=== PATIENT | female | born 1930 | race Caucasian/White ===

== ENCOUNTER 2016-08-07 15:14 | Emergency (ER) | payer MEDICARE ==
[2016-08-07 15:29] VITALS: BP 179/70; PULSE 76; O2SAT 97
--- NOTE | 2016-08-07 16:39 | ERPHSYRPT ---
- History of Present Illness Time Seen by Provider: 08/07/16 16:26 Source: patient Exam Limitations: no limitations Patient Subjective Stated Complaint: PT REPORTS CHRONIC LOW BACK PAIN-STATES THAT HER BACK HAS BEEN HURTING THE LAST FEW DAYS-DENIES INJURY Triage Nursing Assessment: PT [place] T DRY-NO ABRASIONS OR BRUISING NOTED- PT AMBULATORY TO ED WITH NO DIFFICLTUY Physician History: The patient is an 85-year-old female with her complaining of increasing low back pain over the past couple days. She hurt her back 3 years ago and has periodic problems with it. She takes tizanidine and Flexeril. She used to take physical therapy but hasn't had any recently. Her past medical history is significant for chronic back pain, anxiety, hypertension, and hypothyroidism. Timing/Duration: yesterday Method of Injury: bending, lifting Quality: aching Back Pain Location: lumbar spine Severity of Pain-Max: moderate Severity of Pain-Current: moderate Modifying Factors: Improves With: pain medication Associated Symptoms: denies symptoms Previous symptoms: same symptoms as today Allergies/Adverse Reactions: codeine [Codeine] Allergy (Mild, Verified 08/07/16 15:31) Penicillins Allergy (Mild, Verified 08/07/16 15:31) Sulfa (Sulfonamide Antibiotics) [Sulfa(Sulfonamide Antibiotics)] Allergy ( Verified 08/07/16 15:31) Home Medications: Amlodipine Bes/Olmesartan Med [[place] 5-20 mg Tablet] 1 each PO DAILY 02/03/13 [ History] Levothyroxine Sodium 50 Mcg [Synthroid 50 Mcg] 50 mcg PO DAILY 02/03/13 [ History] Lorazepam 1 mg [Ativan 1 MG] 2 mg PO HS 02/03/13 [History] Multivitamins,Therapeutic Tab* [Theragran Multivitamin] 1 tab PO DAILY [History] Cyclobenzaprine HCl [Flexeril] 5 mg PO DAILY 10/01/15 [History] Gabapentin [Neurontin] 100 mg PO HS 10/01/15 [History] Lisinopril 10 mg [Zestril 10 MG] 10 mg PO DAILY 10/01/15 [History] Hx Tetanus, Diphtheria Vaccination/Date Given: Yes Hx Influenza Vaccination/Date Given: Yes Hx Pneumococcal Vaccination/Date Given: No Immunizations Up to Date: Yes - Review of Systems Constitutional: No Fever, No Chills Eyes: No Symptoms Ears, Nose, & Throat: No Symptoms Respiratory: No Cough, No Dyspnea Cardiac: No Chest Pain, No Edema, No Syncope Abdominal/Gastrointestinal: No Abdominal Pain, No Nausea, No Vomiting, No Diarrhea Genitourinary Symptoms: No Dysuria Musculoskeletal: Back Pain Skin: No Rash Neurological: No Dizziness, No Focal Weakness, No Sensory Changes Psychological: No Symptoms Endocrine: No Symptoms Hematologic/Lymphatic: No Symptoms Immunological/Allergic: No Symptoms All Other Systems: Reviewed and Negative - Past Medical History Pertinent Past Medical History: Yes Neurological History: No Pertinent History ENT History: Cataracts, Glaucoma, Macular Degeneration Cardiac History: Hypertension Respiratory History: No Pertinent History Endocrine Medical History: Diabetes Type II Musculoskeletal History: Arthritis, Other GI Medical History: Diverticulitis History: Other Psycho-Social History: Depression Female Reproductive Disorders: No Pertinent History Other Medical History: hx of dilitation last at dr epperson office - Past Surgical History Past Surgical History: Yes Neuro Surgical History: No Pertinent History Cardiac: No Pertinent History Respiratory: No Pertinent History Gastrointestinal: Cholecystectomy Genitourinary: No Pertinent History, Other Musculoskeletal: Joint Replacement, Orthopedic Surgery Female Surgical History: Hysterectomy, Other Other Surgical History: both knees replaced,rotator cuff, rectal narinder bladder lift,cataract removed - Social History Smoking Status: Never smoker Exposure to second hand smoke: No Drug Use: none Patient Lives Alone: No - Female History Hx Now: No - Nursing Vital Signs Nursing Vital Signs: Initial Vital Signs Temperature 98.4 F Temperature Source Oral Pulse Rate 76 Respiratory Rate 18 Blood Pressure [Left Arm] 179/70 Pain Intensity 2 - Physical Exam General Appearance: no apparent distress, alert Eye Exam: PERRL/EOMI, eyes nml inspection Ears, Nose, Throat Exam: normal ENT inspection Neck Exam: normal inspection, non-tender, supple, full range of motion, No meningismus, No midline tenderness Respiratory Exam: normal breath sounds, lungs clear, No respiratory distress Cardiovascular Exam: regular rate/rhythm, normal heart sounds Gastrointestinal Exam: soft, No tenderness, No mass Rectal Exam: not done Back Exam: muscle spasm Extremity Exam: normal inspection, normal range of motion, No calf tenderness, No pedal edema Neurologic Exam: alert, oriented x 3, cooperative, head of advertising II-XII nml as tested, normal mood/affect, nml station & gait, sensation nml, No motor deficits Skin Exam: normal color, warm, dry, No rash SpO2 Interpretation: normal SpO2: 97 Oxygen Delivery: Room Air - Departure Time of Disposition: 16:41 Departure Disposition: Home Clinical Impression: Back pain Condition: Stable Critical Care Time: No Prescriptions: Hydrocodone Bit/Acetaminophen [[place] 5-325 Tablet] 1 each PO Q6H PRN PRN #10 tablet PRN Reason: Pain
== END 2016-08-07 16:49 | disposition home or self-care (01) ==
LOC: ED 15:14
DX: M54.5 Low back pain (principal)
CPT/HCPCS: 99281

== ENCOUNTER 2016-08-28 18:13 | Emergency (ER) | payer MEDICARE ==
--- NOTE | 2016-08-28 18:41 | ERPHSYRPT ---
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 c collar on. c/o rt lateral thigh--small bruise noted. small laceration to post head noted-- bleeding controlled. 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 c collar on. c/o rt lateral thigh--small bruise noted. small laceration to post head noted--bleeding controlled. skin tear noted to rt forearm. No loss of consciousness, patient is alert awake in ER , c/o low back pain, states that it aggravated by fall, able to walk without any difficulty Occurred: just prior to arrival Reason for Fall: tripped Injuries/Pain Location: head Loss of Consciousness: no loss of consciousness Severity of Pain-Max: mild Severity of Pain-Current: mild Modifying Factors: Improves With: nothing Associated Symptoms (Fall): denies symptoms Allergies/Adverse Reactions: codeine [Codeine] Allergy (Mild, Verified 08/07/16 15:31) Penicillins Allergy (Mild, Verified 08/07/16 15:31) Sulfa (Sulfonamide Antibiotics) [Sulfa(Sulfonamide Antibiotics)] Allergy ( Verified 08/07/16 15:31) Home Medications: Amlodipine Bes/Olmesartan Med [Annamarie 5-20 mg Tablet] 1 each PO DAILY 02/03/13 [ History] Levothyroxine Sodium 50 Mcg [Synthroid 50 Mcg] 50 mcg PO DAILY 02/03/13 [ History] Lorazepam 1 mg [Ativan 1 MG] 2 mg PO HS 02/03/13 [History] Multivitamins,Therapeutic Tab* [Theragran Multivitamin] 1 tab PO DAILY [History] Cyclobenzaprine HCl [Flexeril] 5 mg PO DAILY 10/01/15 [History] Gabapentin [Neurontin] 100 mg PO HS 10/01/15 [History] Lisinopril 10 mg [Zestril 10 MG] 10 mg PO DAILY 10/01/15 [History] Hx Tetanus, Diphtheria Vaccination/Date Given: Yes Hx Influenza Vaccination/Date Given: No Hx Pneumococcal Vaccination/Date Given: No Immunizations Up to Date: Yes - Review of Systems Constitutional: No Fever, No Chills Eyes: No Symptoms Ears, Nose, & Throat: No Symptoms Respiratory: No Cough, No Dyspnea Cardiac: No Chest Pain, No Edema, No Syncope Abdominal/Gastrointestinal: No Abdominal Pain, No Nausea, No Vomiting, No Diarrhea Genitourinary Symptoms: No Dysuria Musculoskeletal: Fall, No Back Pain, No Neck Pain Skin: Other (hematoma on occipital scalp), No Rash Neurological: No Dizziness, No Focal Weakness, No Sensory Changes Psychological: No Symptoms Endocrine: No Symptoms All Other Systems: Reviewed and Negative - Past Medical History Pertinent Past Medical History: Yes Neurological History: No Pertinent History ENT History: Cataracts, Glaucoma, Macular Degeneration Cardiac History: Hypertension Respiratory History: No Pertinent History Endocrine Medical History: Diabetes Type II Musculoskeletal History: Arthritis, Other GI Medical History: Diverticulitis History: Other Psycho-Social History: Depression Female Reproductive Disorders: No Pertinent History Other Medical History: hx of dilitation last at dr epperson office - Past Surgical History Past Surgical History: Yes Neuro Surgical History: No Pertinent History Cardiac: No Pertinent History Respiratory: No Pertinent History Gastrointestinal: Cholecystectomy Genitourinary: No Pertinent History, Other Musculoskeletal: Joint Replacement, Orthopedic Surgery Female Surgical History: Hysterectomy, Other Other Surgical History: both knees replaced,rotator cuff, rectal narinder bladder lift,cataract removed - Social History Smoking Status: Never smoker Exposure to second hand smoke: No Drug Use: none Patient Lives Alone: No - Female History Hx Now: No - Nursing Vital Signs Nursing Vital Signs: Initial Vital Signs Temperature 98.4 F Temperature Source Oral Pulse Rate 100 Respiratory Rate 18 Blood Pressure [] 179/66 - [place] Coma Score Best Eye Response ([place]): (4) open spontaneously Best Verbal Response ([place]): (5) oriented Best Motor Response ([place]): (6) obeys commands [place] Total: 15 - Physical Exam General Appearance: no apparent distress, alert Head Injury: no evidence of injury Eye Exam: PERRL/EOMI ENT Exam: airway nml Neck Exam: normal inspection, No tenderness Respiratory/Chest Exam: normal breath sounds, No chest tenderness, No respiratory distress Cardiovascular Exam: normal heart sounds, regular rate/rhythm Gastrointestinal Exam: soft, No tenderness, No distention, No guarding, No ecchymosis Back Exam: normal inspection, decreased range of motion, muscle spasm, No CVA tenderness, No vertebral tenderness, No point tenderness Extremity Exam: normal inspection, normal range of motion, pelvis stable, No deformities Neurologic Exam: alert, oriented x 3, cooperative, sensation nml, other ( occipital scalp hematoma, puncture wound, no laceration), No motor deficits Skin Exam: normal color, warm, dry SpO2: 94 Oxygen Delivery: Room Air - Course Nursing assessment & vital signs reviewed: Yes - CT Exams Head CT Interpretation: Tele-radiologist Report Cervical Spine CT Interpretation: Tele-radiologist Report Ordered Tests: Active Orders 24 hr Category Date Time Status CERVICAL SPINE WO CONTRAST [CT] Stat Exams 08/28/16 18:16 Taken HEAD WITHOUT CONTRAST [CT] Stat Exams 08/28/16 18:16 Taken - Progress Progress: improved, pain not gone completely Progress Note: 08/28/16 19:02 scalp wound cleaned, no sutures needed. dressing applied. patient walked in ER without any difficulty. Counseled pt/family regarding: diagnosis, need for follow-up, rad results - Departure Time of Disposition: 19:03 Departure Disposition: Home Clinical Impression: Head injury, acute, without loss of consciousness Qualifiers: Encounter type: initial encounter Qualified Code(s): S09.90XA - Unspecified injury of head, initial encounter Fall Qualifiers: Encounter type: initial encounter Qualified Code(s): W19.XXXA - Unspecified fall, initial encounter Condition: Stable Critical Care Time: No Referrals: MADDIE SHARP MD [Primary Care Provider] - Followup in 3 days w/ PCP Instructions: Prevent Falls, Contusion
[2016-08-28 19:39] VITALS: BP 122/70; PULSE 84; O2SAT 100
--- NOTE | 2016-08-28 20:44 | XRAY ---
Indication: Posterior head injury/bleeding following fall. Multiple contiguous axial images obtained through the head without contrast. Comparison: May 08, 2012. Again age-appropriate global atrophy and mild periventricular degenerative microvascular ischemia bilaterally. No acute intracranial hemorrhage, abnormal extra-axial fluid collection, or mass effect. Fourth ventricle is midline without hydrocephalus. Bony calvarium intact. Small right occipital scalp hematoma. Mild mucosal thickening seen of the inferior right maxillary sinus. Remaining visualized paranasal sinuses and mastoid air cells are clear. Impression: Right subdural scalp hematoma. No underlying fracture or acute intracranial abnormalities. Atrophy and degenerative microvascular ischemia favoring normal aging brain. CTDI 50.14
--- NOTE | 2016-08-28 20:48 | XRAY ---
Indication: Posterior head injury following fall. Multiple contiguous axial images obtained through the cervical spine. Sagittal and coronal reformatted images obtained. Comparison: May 08, 2012. Axial images again negative for acute fracture or spinal canal stenosis. There is again multilevel degenerative endplate spurring again greatest at the C5-C6 level. Also again multilevel bilateral degenerative facet hypertrophy. New 5 mm T3 sclerotic lesion. Sagittal and coronal reformatted images again demonstrates lordotic straightening. There is progressive worsening multilevel degenerative disc space narrowing again greatest at the C5-C6 level. No acute compression fracture, subluxation, or jumped facets. Visualized noncontrasted soft tissues again demonstrates mild carotid calcifications bilaterally. Lung apices clear. CT had reported separately. Impression: 1. Negative for acute fracture/subluxation. 2. Again lordotic straightening and multilevel degenerative disc disease. 3. New indeterminate 5 mm T3 sclerotic lesion. CTDI 94.29
== END 2016-08-28 19:38 | disposition home or self-care (01) ==
LOC: ED 18:13
DX: S09.90XA Unspecified injury of head, initial encounter (principal); S51.811A Laceration without foreign body of right forearm, initial encounter; S70.11XA Contusion of right thigh, initial encounter; W01.10XA Fall on same level from slipping, tripping and stumbling with subsequent striking against unspecified object, initial encounter
CPT/HCPCS: 70450; 72125; 99284

== ENCOUNTER 2016-09-10 09:30 | Emergency (ER) | payer MEDICARE ==
[2016-09-10 09:44] VITALS: O2SAT 97
--- NOTE | 2016-09-10 10:09 | ERPHSYRPT ---
- History of Present Illness Time Seen by Provider: 09/10/16 09:51 Source: patient Patient Subjective Stated Complaint: constipation for days--small bm daily 'but i feel like i need to go adn can't' abd round and nontender. c/o slight lower back pain. skin warm and dry. denies pain with urination Triage Nursing Assessment: see above Physician History: CC: back pain Hx: 85 y/o patient of Dr Sharp. She fell 2 weeks ago. Had some back pain. Had CT head and neck. No imaging for back found. She has mild low back pain. No N/T/ W. She has some dysuria. She has intermittent constipation and diarrhea. Today feels constipated. She took a lot of kaopectate yesterday as she does not like to have loose stools when out. No abdominal pain. No blood in stools. Has had prior colonoscopy per Dr Sen. Allergies/Adverse Reactions: codeine [Codeine] Allergy (Mild, Verified 09/10/16 09:44) Penicillins Allergy (Mild, Verified 09/10/16 09:44) Sulfa (Sulfonamide Antibiotics) [Sulfa(Sulfonamide Antibiotics)] Allergy ( Verified 09/10/16 09:44) Home Medications: Amlodipine Bes/Olmesartan Med [Annamarie 5-20 mg Tablet] 1 each PO DAILY 02/03/13 [ History] Levothyroxine Sodium 50 Mcg [Synthroid 50 Mcg] 50 mcg PO DAILY 02/03/13 [ History] Lorazepam 1 mg [Ativan 1 MG] 2 mg PO HS 02/03/13 [History] Multivitamins,Therapeutic Tab* [Theragran Multivitamin] 1 tab PO DAILY [History] Cyclobenzaprine HCl [Flexeril] 5 mg PO DAILY 10/01/15 [History] Gabapentin [Neurontin] 100 mg PO HS 10/01/15 [History] Lisinopril 10 mg [Zestril 10 MG] 10 mg PO DAILY 10/01/15 [History] Hx Tetanus, Diphtheria Vaccination/Date Given: Yes Hx Influenza Vaccination/Date Given: No Hx Pneumococcal Vaccination/Date Given: No - Review of Systems Constitutional: No Fever, No Chills Eyes: No Symptoms Ears, Nose, & Throat: No Symptoms Respiratory: No Dyspnea Cardiac: No Chest Pain Abdominal/Gastrointestinal: Diarrhea, Constipation, No Abdominal Pain, No Nausea , No Vomiting Genitourinary Symptoms: Dysuria Musculoskeletal: Back Pain, Fall (2 weeks ago), No Neck Pain Skin: No Rash Neurological: No Headache All Other Systems: Reviewed and Negative - Past Medical History Pertinent Past Medical History: Yes Neurological History: No Pertinent History ENT History: Cataracts, Glaucoma, Macular Degeneration Cardiac History: Hypertension Respiratory History: No Pertinent History Endocrine Medical History: Diabetes Type II Musculoskeletal History: Arthritis, Other GI Medical History: Diverticulitis History: Other Psycho-Social History: Depression Female Reproductive Disorders: No Pertinent History Other Medical History: hx of dilitation - Past Surgical History Past Surgical History: Yes Neuro Surgical History: No Pertinent History Cardiac: No Pertinent History Respiratory: No Pertinent History Gastrointestinal: Cholecystectomy Genitourinary: No Pertinent History, Other Musculoskeletal: Joint Replacement, Orthopedic Surgery Female Surgical History: Hysterectomy, Other Other Surgical History: both knees replaced,rotator cuff, rectal narinder bladder lift,cataract removed - Social History Smoking Status: Never smoker Exposure to second hand smoke: No Drug Use: none Patient Lives Alone: No (lives home with ) - Female History Hx Now: No - Nursing Vital Signs Nursing Vital Signs: Initial Vital Signs Temperature 97.9 F Temperature Source Oral Pulse Rate 103 Respiratory Rate 18 Blood Pressure [Right Arm] 187/88 Pain Intensity 1 - Physical Exam General Appearance: alert Eye Exam: PERRL/EOMI Ears, Nose, Throat Exam: moist mucous membranes Neck Exam: normal inspection, non-tender, supple Respiratory Exam: normal breath sounds, lungs clear Cardiovascular Exam: regular rate/rhythm Gastrointestinal/Abdomen Exam: soft, No tenderness, No distention, No mass, No guarding Rectal Exam: normal rectal tone, black stool, other (no stool in rectal vault) Back Exam: normal inspection, normal range of motion Extremity Exam: normal inspection, normal range of motion Neurologic Exam: alert, oriented x 3, cooperative, sensation nml, No motor deficits Skin Exam: warm, dry SpO2 Interpretation: normal SpO2: 97 Oxygen Delivery: Room Air - Course Nursing assessment & vital signs reviewed: Yes - Radiology Exams lumbar X-ray Interpretation: Reviewed by me, No Fracture, No Subluxation, Other (DJD) Ordered Tests: Active Orders 24 hr Category Date Time Status Cath for Specimen-Straight STAT Care 09/10/16 09:51 Active LUMBAR LIMITED (2 OR 3 VIEWS) Stat Exams 09/10/16 10:01 Taken CBC W DIFF Stat Lab 09/10/16 10:00 Completed CMP Stat Lab 09/10/16 10:00 Results Occult Blood,Stool Other Stat Lab 09/10/16 10:00 Completed UA W/RFX UR CULTURE Stat Lab 09/10/16 10:00 Completed Lab/Rad Data: Laboratory Result Diagrams 09/10/16 10:00 09/10/16 10:00 Laboratory Results 09/10/16 09/10/16 09/10/16 Range/Units 10:00 10:00 10:00 WBC 10.6 H (4.0-10.5) K/mm3 RBC 4.89 (4.1-5.4) M/mm3 Hgb 12.9 (12.0-16.0) gm/dl Hct 40.5 (35-47) % MCV 82.8 (78-100) fl MCH 26.4 (26-32) pg MCHC 31.9 L (32-36) g/dl RDW 14.8 H (11.5-14.0) % Plt Count 303 (150-450) K/mm3 MPV 11.1 H (6-9.5) fl Gran % 72.7 H (36.0-66.0) % Lymphocytes % 19.8 L (24.0-44.0) % Monocytes % 5.9 (0.0-12.0) % Eosinophils % 0.8 (0.00-5.0) % Basophils % 0.8 (0.0-0.4) % Basophils # 0.08 (0-0.4) Sodium 139 (136-145) mEq/L Potassium 4.3 (3.5-5.1) mEq/L Chloride 102 (98-107) mEq/L Carbon Dioxide 26.0 (21-32) mEq/L Anion Gap 15.2 H (5-15) MEQ/L BUN 15 (9-20) mg/dL Creatinine 1.20 (0.55-1.30) mg/dl Estimated GFR 45 ML/MIN Glucose 140 H (70-110) MG/DL Calcium 8.6 (8.5-10.1) mg/dL Total Bilirubin 0.30 (0.2-1.0) mg/dL AST 16 (15-37) U/L ALT Pending Alkaline Phosphatase 97 (46-116) U/L Serum Total Protein 7.2 (6.4-8.2) gm/dL Albumin 3.5 (3.4-5.0) g/dL Ur Collection Type Urine Color (YELLOW) Urine Appearance (CLEAR) Urine pH (5-6) Ur Specific [place] (1.005-1.025) Urine Protein (Negative) Urine Ketones (NEGATIVE) Urine Blood (0-5) Hector/ul Urine Nitrite (NEGATIVE) Urine Bilirubin (NEGATIVE) Urine Urobilinogen (0-1) mg/dL Ur Leukocyte Esterase (NEGATIVE) Urine Glucose (NEGATIVE) mg/dL Stool Occult Blood NEGATIVE (Negative) Specimen Received 09/10/16 Range/Units 10:00 WBC (4.0-10.5) K/mm3 RBC (4.1-5.4) M/mm3 Hgb (12.0-16.0) gm/dl Hct (35-47) % MCV (78-100) fl MCH (26-32) pg MCHC (32-36) g/dl RDW (11.5-14.0) % Plt Count (150-450) K/mm3 MPV (6-9.5) fl Gran % (36.0-66.0) % Lymphocytes % (24.0-44.0) % Monocytes % (0.0-12.0) % Eosinophils % (0.00-5.0) % Basophils % (0.0-0.4) % Basophils # (0-0.4) Sodium (136-145) mEq/L Potassium (3.5-5.1) mEq/L Chloride (98-107) mEq/L Carbon Dioxide (21-32) mEq/L Anion Gap (5-15) MEQ/L BUN (9-20) mg/dL Creatinine (0.55-1.30) mg/dl Estimated GFR ML/MIN Glucose (70-110) MG/DL Calcium (8.5-10.1) mg/dL Total Bilirubin (0.2-1.0) mg/dL AST (15-37) U/L ALT Alkaline Phosphatase (46-116) U/L Serum Total Protein (6.4-8.2) gm/dL Albumin (3.4-5.0) g/dL Ur Collection Type CATH Urine Color YELLOW (YELLOW) Urine Appearance CLEAR (CLEAR) Urine pH 7.0 (5-6) Ur Specific [place] 1.005 (1.005-1.025) Urine Protein NEGATIVE (Negative) Urine Ketones NEGATIVE (NEGATIVE) Urine Blood NEGATIVE (0-5) Hector/ul Urine Nitrite NEGATIVE (NEGATIVE) Urine Bilirubin NEGATIVE (NEGATIVE) Urine Urobilinogen NORMAL (0-1) mg/dL Ur Leukocyte Esterase NEGATIVE (NEGATIVE) Urine Glucose NEGATIVE (NEGATIVE) mg/dL Stool Occult Blood (Negative) Specimen Received 09/10/16 1005 - Progress Progress Note: 09/10/16 10:31 Pt has been to [facility] twice. Stable. NT abdomen. Labs reassuring. Advised prune juice and APAP and follow up with Dr Sharp. Counseled pt/family regarding: lab results, diagnosis, need for follow-up, rad results - Departure Time of Disposition: 10:32 Departure Disposition: Home Clinical Impression: Constipation Qualifiers: Constipation type: drug induced constipation Qualified Code(s): K59.03 - Drug induced constipation Lumbar sprain Qualifiers: Encounter type: subsequent encounter Qualified Code(s): S33.5XXD - Sprain of ligaments of lumbar spine, subsequent encounter Condition: Stable Critical Care Time: No Referrals: MADDIE SHARP MD [Primary Care Provider] - Instructions: Constipation Additional Instructions: Prune juice nightly. Tylenol for discomfort. Follow up with Dr Sharp.
[2016-09-10 10:11] LABS: ADD URINE CULTURE? NO (NO); Bilirubin NEGATIVE (NEGATIVE); Blood NEGATIVE Ery/ul (0-5); COMPLETE URINE MICROSCOPIC? NO; Collection Type CATH; Glucose NEGATIVE (NEGATIVE); Leukocyte Esterase NEGATIVE (NEGATIVE)
[2016-09-10 10:12] LABS: BASOPHIL % 0.8 % (0.0-0.4); Eosinophil % 0.8 % (0.00-5.0); Granulocytes % 72.7 % (36.0-66.0); Lymphocytes % 19.8 % (24.0-44.0); Mean Cell Volume 82.8 fl (78-100); Mean Corpuscular Hemoglobin 26.4 pg (26-32); Mean Platelet Volume 11.1 fl (6-9.5); Monocytes % 5.9 % (0.0-12.0); Platelet Count 303 K/mm3 (150-450); Red Blood Count 4.89 M/mm3 (4.1-5.4); Red Cell Distribution Width 14.8 % (11.5-14.0); White Blood Count 10.6 K/mm3 (4.0-10.5)
[2016-09-10 10:25] LABS: ALBUMIN 3.5 g/dL (3.4-5.0); ANION GAP 15.2 MEQ/L (5-15); BILIRUBIN,TOTAL 0.3 mg/dL (0.2-1.0); Potassium 4.3 mEq/L (3.5-5.1); Total Protein 7.2 gm/dL (6.4-8.2)
[2016-09-10 10:57] VITALS: BP 166/98; PULSE 97
--- NOTE | 2016-09-10 21:14 | XRAY ---
Indication: Recurrent low back pain following fall 6 days ago. Comparison: None 3 views of the lumbar spine demonstrates 5 lumbar vertebral segments with osteopenia, moderate/advanced multilevel degenerative spondylosis, mild double curvature scoliosis, and mild aortoiliac calcifications. No acute fracture, subluxation, or suspicious bony lesions.
== END 2016-09-10 10:56 | disposition home or self-care (01) ==
LOC: ED 09:30
DX: K59.03 Drug induced constipation (principal); S33.5XXD Sprain of ligaments of lumbar spine, subsequent encounter; M54.9 Dorsalgia, unspecified; Z79.899 Other long term (current) drug therapy
CPT/HCPCS: 99284; 81002; 36415; 82272; 85025; 80053; 72100; P9612

== ENCOUNTER 2016-09-10 16:31 | Emergency (ER) | payer MEDICARE ==
[2016-09-10 17:41] VITALS: BP 181/98; PULSE 86
[2016-09-10 17:44] VITALS: O2SAT 98
--- NOTE | 2016-09-10 17:44 | ERPHSYRPT ---
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 hematoma to rt mid femur--swelling noted. ambulated with minimal pain. no other injuries. Physician History: CC: fall Hx: 85 y/o patient fell in the yard in the grass 2 hours ago. She was in ER earlier this AM with some constipation. She had prior falls. Some right hip pain. No other injuries. No LOC. No head injury. No new neck or back pain. Occurred: this afternoon Loss of Consciousness: no loss of consciousness Allergies/Adverse Reactions: codeine [Codeine] Allergy (Mild, Verified 09/10/16 16:39) Penicillins Allergy (Mild, Verified 09/10/16 16:39) Sulfa (Sulfonamide Antibiotics) [Sulfa(Sulfonamide Antibiotics)] Allergy ( Verified 09/10/16 16:39) Home Medications: Amlodipine Bes/Olmesartan Med [Annamarie 5-20 mg Tablet] 1 each PO DAILY 02/03/13 [ History] Levothyroxine Sodium 50 Mcg [Synthroid 50 Mcg] 50 mcg PO DAILY 02/03/13 [ History] Lorazepam 1 mg [Ativan 1 MG] 2 mg PO HS 02/03/13 [History] Multivitamins,Therapeutic Tab* [Theragran Multivitamin] 1 tab PO DAILY [History] Cyclobenzaprine HCl [Flexeril] 5 mg PO DAILY 10/01/15 [History] Gabapentin [Neurontin] 100 mg PO HS 10/01/15 [History] Lisinopril 10 mg [Zestril 10 MG] 10 mg PO DAILY 10/01/15 [History] Hx Tetanus, Diphtheria Vaccination/Date Given: Yes Hx Influenza Vaccination/Date Given: No Hx Pneumococcal Vaccination/Date Given: No - Review of Systems Constitutional: No Symptoms Respiratory: No Dyspnea Cardiac: No Chest Pain Abdominal/Gastrointestinal: No Abdominal Pain, No Nausea, No Vomiting Musculoskeletal: Injury (right hip), Joint Pain (right hip), No Back Pain, No Neck Pain Skin: No Rash Neurological: No Focal Weakness, No Headache, No Parasthesia - Past Medical History Pertinent Past Medical History: Yes Neurological History: No Pertinent History ENT History: Cataracts, Glaucoma, Macular Degeneration Cardiac History: Hypertension Respiratory History: No Pertinent History Endocrine Medical History: Diabetes Type II Musculoskeletal History: Arthritis, Other GI Medical History: Diverticulitis History: Other Psycho-Social History: Depression Female Reproductive Disorders: No Pertinent History - Past Surgical History Past Surgical History: Yes Neuro Surgical History: No Pertinent History Cardiac: No Pertinent History Respiratory: No Pertinent History Gastrointestinal: Cholecystectomy Genitourinary: No Pertinent History, Other Musculoskeletal: Joint Replacement, Orthopedic Surgery Female Surgical History: Hysterectomy, Other Other Surgical History: both knees replaced,rotator cuff, rectal narinder bladder lift,cataract removed - Social History Smoking Status: Never smoker Exposure to second hand smoke: No Drug Use: none Patient Lives Alone: No (lives home with ) - Female History Hx Now: No - Nursing Vital Signs Nursing Vital Signs: Initial Vital Signs Temperature 98.1 F Temperature Source Oral Pulse Rate 80 Respiratory Rate 18 Blood Pressure [Right Arm] 140/84 Pain Intensity 9 - [place] Coma Score Best Eye Response (Gila): (4) open spontaneously Best Verbal Response (Gila): (5) oriented Best Motor Response ([place]): (6) obeys commands [place] Total: 15 - Physical Exam General Appearance: alert Head Injury: no evidence of injury Eye Exam: PERRL/EOMI ENT Exam: airway nml Neck Exam: supple, No mid-line tenderness Respiratory/Chest Exam: normal breath sounds Cardiovascular Exam: regular rate/rhythm Gastrointestinal Exam: soft, No tenderness, No distention Extremity Exam: other (old bruising. Some right hip tender. FROM right hip. No knee or ankle tenderness.) Neurologic Exam: alert, oriented x 3, cooperative, sensation nml, No motor deficits Skin Exam: warm, dry, No rash SpO2 Interpretation: normal SpO2: 98 Oxygen Delivery: Room Air - Course Nursing assessment & vital signs reviewed: Yes - Radiology Exams pelvis/right hip X-ray Interpretation: Reviewed by me, No Fracture Ordered Tests: Active Orders 24 hr Category Date Time Status Cold Application STAT Care 09/10/16 16:39 Active HIP UNI (2V) INCL PEL IF DONE Stat Exams 09/10/16 16:39 Taken - Progress Progress Note: 09/10/16 17:42 She will use APAP. She has been up to [place] twice and ambulated fine here. Advised cane and follow up and fall precautions. Counseled pt/family regarding: diagnosis, need for follow-up, rad results - Departure Time of Disposition: 17:43 Departure Disposition: Home Clinical Impression: Contusion of right hip, Fall Condition: Stable Critical Care Time: No Referrals: MADDIE SHARP MD [Primary Care Provider] - Instructions: Prevent Falls, Contusion, Choose and Use a Cane Additional Instructions: Use a cane and take care not to fall. Tylenol/acetaminophen as directed for pain. Follow up Monday with Dr Sharp.
--- NOTE | 2016-09-10 21:15 | XRAY ---
Indication: Pain following fall. Comparison: None AP pelvis and 2 views of the right hip demonstrates osteopenia, lower lumbar degenerative spondylosis, tiny gluteal calcified granulomas, and scattered faint vascular calcifications. No other bony, articular, or soft tissue abnormalities.
== END 2016-09-10 17:50 | disposition home or self-care (01) ==
LOC: ED 16:31
DX: S70.01XA Contusion of right hip, initial encounter (principal); W19.XXXA Unspecified fall, initial encounter
CPT/HCPCS: 73502; 99283

== ENCOUNTER 2016-09-12 15:40 | Emergency (ER) | payer MEDICARE ==
[2016-09-12 15:53] VITALS: BP 140/103
--- NOTE | 2016-09-12 16:30 | XRAY ---
Indication: Pain following twisting injury. Comparison: None 3 nonweightbearing views of the right foot demonstrates osteopenia, mid foot degenerative changes, first MTP bunion deformity, second metatarsal head Freiberg's infraction deformity, and small plantar heel spur. No other bony, articular, or soft tissue abnormalities. Right ankle reported separately.
--- NOTE | 2016-09-12 16:31 | ERPHSYRPT ---
- History of Present Illness Time Seen by Provider: 09/12/16 16:09 Source: patient, family () Patient Subjective Stated Complaint: PT HERE FOR A PAIN TO RIGHT ANKLE AND FOOT , SHE STATES SHE WAS HELPING HER UP FROM CHAIR AND GOT FOOT CAUGHT IN CHAIR. Triage Nursing Assessment: PT HAS SWELLING TO RIGHT OUTER ASPECT OF RIGHT ANKLE. NO BRUISING Physician History: CC: right ankle/foot injury HX: 85 y/o patient of dr Sharp stuck shoe under chair and it twisted. Pain in right foot and ankle. No other injuries. Took APAP at home. Hurts to walk. She has had two other ER visits this weekend. Lower Extremities Pain: foot: right, ankle: right Allergies/Adverse Reactions: codeine [Codeine] Allergy (Mild, Verified 09/12/16 15:53) Penicillins Allergy (Mild, Verified 09/12/16 15:53) Sulfa (Sulfonamide Antibiotics) [Sulfa(Sulfonamide Antibiotics)] Allergy ( Verified 09/12/16 15:53) Home Medications: Amlodipine Bes/Olmesartan Med [Annamarie 5-20 mg Tablet] 1 each PO DAILY 02/03/13 [ History] Levothyroxine Sodium 50 Mcg [Synthroid 50 Mcg] 50 mcg PO DAILY 02/03/13 [ History] Lorazepam 1 mg [Ativan 1 MG] 2 mg PO HS 02/03/13 [History] Multivitamins,Therapeutic Tab* [Theragran Multivitamin] 1 tab PO DAILY [History] Cyclobenzaprine HCl [Flexeril] 5 mg PO DAILY 10/01/15 [History] Gabapentin [Neurontin] 100 mg PO HS 10/01/15 [History] Lisinopril 10 mg [Zestril 10 MG] 10 mg PO DAILY 10/01/15 [History] Hx Tetanus, Diphtheria Vaccination/Date Given: Yes Hx Influenza Vaccination/Date Given: No Hx Pneumococcal Vaccination/Date Given: No - Review of Systems Constitutional: No Symptoms Musculoskeletal: Injury, No Back Pain, No Neck Pain Skin: No Rash Neurological: No Focal Weakness, No Headache, No Parasthesia - Past Medical History Pertinent Past Medical History: Yes Neurological History: No Pertinent History ENT History: Cataracts, Glaucoma, Macular Degeneration Cardiac History: Hypertension Respiratory History: No Pertinent History Endocrine Medical History: Diabetes Type II Musculoskeletal History: Arthritis, Other GI Medical History: Diverticulitis History: Other Psycho-Social History: Depression Female Reproductive Disorders: No Pertinent History Other Medical History: hx of dilitation - Past Surgical History Past Surgical History: Yes Neuro Surgical History: No Pertinent History Cardiac: No Pertinent History Respiratory: No Pertinent History Gastrointestinal: Cholecystectomy Genitourinary: No Pertinent History, Other Musculoskeletal: Joint Replacement, Orthopedic Surgery Female Surgical History: Hysterectomy, Other Other Surgical History: both knees replaced,rotator cuff, rectal narinder bladder lift,cataract removed - Social History Smoking Status: Never smoker Exposure to second hand smoke: No Drug Use: none Patient Lives Alone: No (lives home with ) - Female History Hx Last Menstrual Period: POST Hx Now: No - Nursing Vital Signs Nursing Vital Signs: Initial Vital Signs Temperature 97.2 F Temperature Source Oral Pulse Rate 89 Respiratory Rate 16 Blood Pressure [Right Arm] 140/103 Pain Intensity 8 - Physical Exam General Appearance: alert Eyes, Ears, Nose, Throat Exam: moist mucous membranes Cardiovascular/Respiratory Exam: regular rate/rhythm Gastrointestinal/Abdominal Exam: non-tender, soft Neuro/Tendon Exam: normal sensation, normal motor functions Mental Status Exam: alert, oriented x 3, cooperative Skin Exam: warm, dry, other (intact) SpO2: 94 Oxygen Delivery: Room Air Comments: tender right ankle and foot without bruising, swelling. Skin intact. - Course Nursing assessment & vital signs reviewed: Yes - Radiology Exams right foot/ankle X-ray Interpretation: Reviewed by me, No Fracture (osteopneia present) Ordered Tests: Active Orders 24 hr Category Date Time Status [facility] Bandage Application -[facility] STAT Care 09/12/16 16:25 Active ANKLE (3 VIEWS) Stat Exams 09/12/16 16:00 Taken FOOT (MINIMUM 3 VIEWS) Stat Exams 09/12/16 16:01 Taken - Progress Progress Note: 09/12/16 16:30 Harrison wrap, APAP. Advised follow up Dr Sharp. Counseled pt/family regarding: diagnosis, need for follow-up - Departure Time of Disposition: 16:30 Departure Disposition: Home Clinical Impression: Sprain of right ankle Condition: Stable Critical Care Time: No Referrals: MADDIE SHARP MD [Primary Care Provider] - Instructions: Prevent Falls, Ankle Sprain, Choose and Use a Cane Additional Instructions: Acetaminophen as directed. Rest, cane, take care not to fall. Ice packs off and on. Follow up Wed with Dr Sharp.
--- NOTE | 2016-09-12 16:33 | XRAY ---
Indication: Pain following twisting injury. Comparison: None 3 views of the right ankle demonstrates anterior lateral soft tissue swelling, osteopenia, and small plantar heel spur. No other bony, articular, or soft tissue abnormalities. Right foot reported separately.
[2016-09-12 16:48] VITALS: PULSE 70; O2SAT 97
== END 2016-09-12 16:48 | disposition home or self-care (01) ==
LOC: ED 15:40
DX: S93.401A Sprain of unspecified ligament of right ankle, initial encounter (principal); X50.0XXA Overexertion from strenuous movement or load, initial encounter
CPT/HCPCS: 73610; 73630; 99283

== ENCOUNTER 2016-09-25 10:01 | Emergency (ER) | payer MEDICARE ==
[2016-09-25 10:17] VITALS: BP 185/89; PULSE 79; O2SAT 96
[2016-09-25] MEDS ORDERED: Lomotil PO ONE ×2 (10:19→10:27)
--- NOTE | 2016-09-25 10:25 | ERPHSYRPT ---
- History of Present Illness Time Seen by Provider: 09/25/16 10:21 Historian: patient Exam Limitations: no limitations Patient Subjective Stated Complaint: "I have had constipation and have been eating prunes and now I have watery diarrhea." Triage Nursing Assessment: Pt alert and oriented X 3, skin pwd, pt ambulates without difficulty, able to speak in full sentences. Physician History: "I have had constipation and have been eating prunes and now I have watery diarrhea."She took 10 prunes for her constipation yesterday AM Timing/Duration: today Abdominal Pain Onset Location: generalized abdomen Severity of Pain-Max: mild Severity of Pain-Current: mild Modifying Factors: Improves With: nothing Associated Symptoms: diarrhea Allergies/Adverse Reactions: codeine [Codeine] Allergy (Mild, Verified 09/25/16 10:07) Penicillins Allergy (Mild, Verified 09/25/16 10:07) Sulfa (Sulfonamide Antibiotics) [Sulfa(Sulfonamide Antibiotics)] Allergy ( Verified 09/25/16 10:07) Home Medications: Amlodipine Bes/Olmesartan Med [Annamarie 5-20 mg Tablet] 1 each PO DAILY 02/03/13 [ History] Levothyroxine Sodium 50 Mcg [Synthroid 50 Mcg] 50 mcg PO DAILY 02/03/13 [ History] Lorazepam 1 mg [Ativan 1 MG] 2 mg PO HS 02/03/13 [History] Multivitamins,Therapeutic Tab* [Theragran Multivitamin] 1 tab PO DAILY [History] Cyclobenzaprine HCl [Flexeril] 5 mg PO DAILY 10/01/15 [History] Gabapentin [Neurontin] 100 mg PO HS 10/01/15 [History] Lisinopril 10 mg [Zestril 10 MG] 10 mg PO DAILY 10/01/15 [History] Hx Tetanus, Diphtheria Vaccination/Date Given: Yes Hx Influenza Vaccination/Date Given: Yes Hx Pneumococcal Vaccination/Date Given: No Immunizations Up to Date: Yes - Review of Systems Constitutional: No Fever, No Chills Eyes: No Symptoms Ears, Nose, & Throat: No Symptoms Respiratory: No Cough, No Dyspnea Cardiac: No Chest Pain, No Edema, No Syncope Abdominal/Gastrointestinal: Abdominal Pain, Diarrhea, No Nausea, No Vomiting Genitourinary Symptoms: No Dysuria Musculoskeletal: No Back Pain, No Neck Pain Skin: No Rash Neurological: No Dizziness, No Focal Weakness, No Sensory Changes Psychological: No Symptoms Endocrine: No Symptoms All Other Systems: Reviewed and Negative - Past Medical History Pertinent Past Medical History: Yes Neurological History: No Pertinent History ENT History: Cataracts, Glaucoma, Macular Degeneration Cardiac History: Hypertension Respiratory History: No Pertinent History Endocrine Medical History: Diabetes Type II Musculoskeletal History: Arthritis, Other GI Medical History: Diverticulitis History: Other Psycho-Social History: Depression Female Reproductive Disorders: No Pertinent History Other Medical History: hx of dilitation - Past Surgical History Past Surgical History: Yes Neuro Surgical History: No Pertinent History Cardiac: No Pertinent History Respiratory: No Pertinent History Gastrointestinal: Cholecystectomy Genitourinary: No Pertinent History, Other Musculoskeletal: Joint Replacement, Orthopedic Surgery Female Surgical History: Hysterectomy, Other Other Surgical History: both knees replaced,rotator cuff, rectal narinder bladder lift,cataract removed - Social History Smoking Status: Never smoker Exposure to second hand smoke: No Drug Use: none Patient Lives Alone: No - Female History Hx Now: No - Nursing Vital Signs Nursing Vital Signs: Initial Vital Signs Temperature 97.9 F Temperature Source Oral Pulse Rate 79 Respiratory Rate 16 Blood Pressure [Right Arm] 185/89 Pain Intensity 0 - Physical Exam General Appearance: no apparent distress, alert Eye Exam: PERRL/EOMI, eyes nml inspection Ears, Nose, Throat Exam: normal ENT inspection, pharynx normal, moist mucous membranes Neck Exam: normal inspection, non-tender, supple, full range of motion Respiratory Exam: normal breath sounds, lungs clear, No respiratory distress Cardiovascular Exam: regular rate/rhythm, normal heart sounds Gastrointestinal/Abdomen Exam: soft, No tenderness, No mass Back Exam: normal inspection, normal range of motion, No CVA tenderness, No vertebral tenderness Extremity Exam: normal inspection, normal range of motion, pelvis stable Neurologic Exam: alert, oriented x 3, cooperative, normal mood/affect, nml cerebellar function, sensation nml, No motor deficits Skin Exam: normal color, warm, dry SpO2: 96 Oxygen Delivery: Room Air - Course Nursing assessment & vital signs reviewed: Yes Ordered Tests: Medication Summary Discontinued Medications Generic Name Dose Route Start Last Admin Trade Name Freq PRN Reason Stop Dose Admin Diphenoxylate HCl/Atropine 2 tablet 09/25/16 10:19 Lomotil PO 09/25/16 10:20 STAT ONE - Progress Progress: improved Counseled pt/family regarding: diagnosis, need for follow-up - Departure Time of Disposition: 10:23 Departure Disposition: Home Clinical Impression: Diarrhea due to drug Condition: Stable Critical Care Time: No Referrals: MADDIE SHARP MD [Primary Care Provider] - Instructions: Diarrhea and Traveler's Diarrhea -- Child Prescriptions: Diphenoxylate HCl/Atropine [Lomotil Tablet] 1 each PO QIDPRN PRN #10 tablet PRN Reason: Diarrhea
[2016-09-25] MEDS ORDERED: Lomotil ONE (10:30)
== END 2016-09-25 10:50 | disposition home or self-care (01) ==
LOC: ED 10:01
DX: K52.1 Toxic gastroenteritis and colitis (principal)
CPT/HCPCS: 99283; A9270-GY

== ENCOUNTER 2018-02-22 18:52 | Emergency (ER) | payer MEDICARE ==
--- NOTE | 2018-02-22 19:26 | ERPHSYRPT ---
- History of Present Illness Time Seen by Provider: 02/22/18 19:12 Source: EMS, [facility] records Exam Limitations: clinical condition Physician History: The patient is an 87-year-old demented female brought in by ambulance from [facility] at 5:45 PM in the bathroom. She had been her normal self all day and to the fall. Now she does not speak except for gibberish and she does not appear to focus. Her past medical history is significant for dementia, hypertension, hypothyroidism, glaucoma. Pt is full code. We called the [facility] back for clarification of the history. The nurse tells us that at 4:45 PM the patient was found sitting on the bathroom floor. She was her normal self at that time. At 6:10 PM they found the patient sitting on the side of a chair and became completely unresponsive. Her eyes closed and she would not respond. Occurred: this evening Reason for Fall: unknown, fell from standing pos Injuries/Pain Location: head (possible injury) Loss of Consciousness: unsure Severity of Pain-Max: mild Severity of Pain-Current: mild Modifying Factors: Improves With: nothing Associated Symptoms (Fall): confusion, slurred speech Allergies/Adverse Reactions: codeine [Codeine] Allergy (Mild, Verified 09/25/16 10:07) Penicillins Allergy (Mild, Verified 09/25/16 10:07) Sulfa (Sulfonamide Antibiotics) [Sulfa(Sulfonamide Antibiotics)] Allergy ( Verified 09/25/16 10:07) Home Medications: Amlodipine Bes/Olmesartan Med [Annamarie 5-20 mg Tablet] 1 each PO DAILY 02/03/13 [ History] Levothyroxine Sodium 50 Mcg [Synthroid 50 Mcg] 50 mcg PO DAILY 02/03/13 [ History] Lorazepam 1 mg [Ativan 1 MG] 2 mg PO HS 02/03/13 [History] Multivitamins,Therapeutic Tab* [Theragran Multivitamin] 1 tab PO DAILY [History] Cyclobenzaprine HCl [Flexeril] 5 mg PO DAILY 10/01/15 [History] Gabapentin [Neurontin] 100 mg PO HS 10/01/15 [History] Lisinopril 10 mg [Zestril 10 MG] 10 mg PO DAILY 10/01/15 [History] Hx Tetanus, Diphtheria Vaccination/Date Given: Yes Hx Influenza Vaccination/Date Given: Yes Hx Pneumococcal Vaccination/Date Given: No - Review of Systems Constitutional: No Fever, No Chills Eyes: No Symptoms Ears, Nose, & Throat: No Symptoms Respiratory: No Cough, No Dyspnea Cardiac: No Chest Pain, No Edema, No Syncope Abdominal/Gastrointestinal: No Abdominal Pain, No Nausea, No Vomiting, No Diarrhea Genitourinary Symptoms: No Dysuria Musculoskeletal: Fall, Injury Skin: No Rash Neurological: Other (unable to communicate) Psychological: No Symptoms Endocrine: No Symptoms Hematologic/Lymphatic: No Symptoms Immunological/Allergic: No Symptoms All Other Systems: Reviewed and Negative - Past Medical History Pertinent Past Medical History: Yes Neurological History: No Pertinent History ENT History: Cataracts, Glaucoma, Macular Degeneration Cardiac History: Hypertension Respiratory History: No Pertinent History Endocrine Medical History: Diabetes Type II Musculoskeletal History: Arthritis, Other GI Medical History: Diverticulitis History: Other Psycho-Social History: Depression Female Reproductive Disorders: No Pertinent History Other Medical History: hx of dilitation - Past Surgical History Past Surgical History: Yes Neuro Surgical History: No Pertinent History Cardiac: No Pertinent History Respiratory: No Pertinent History Gastrointestinal: Cholecystectomy Genitourinary: No Pertinent History, Other Musculoskeletal: Joint Replacement, Orthopedic Surgery Female Surgical History: Hysterectomy, Other Other Surgical History: both knees replaced,rotator cuff, rectal narinder bladder lift,cataract removed - Social History Smoking Status: Never smoker Exposure to second hand smoke: No Drug Use: none Patient Lives Alone: No - Nursing Vital Signs Nursing Vital Signs: Initial Vital Signs Pulse Rate 86 02/22/18 19:03 Respiratory Rate 18 02/22/18 19:03 Blood Pressure 124/54 02/22/18 19:03 O2 Sat by Pulse Oximetry 92 L 02/22/18 19:03 - [place] Coma Score Best Eye Response ([place]): (4) open spontaneously Best Verbal Response ([place]): (3) inappropriate words Best Motor Response ([place]): (5) localizes to pain Gila Total: 12 - Physical Exam General Appearance: moderate distress Head Injury: no evidence of injury Eye Exam: other (Examination of the eyes: Right pupil is slightly larger than left. Right pupil is slower to react to light than left. Shining a light in the left pupil, the right pupil does react but is slower than left. Shining a light into the right pupil, the left pupil reacts. The patient does open her eyes spontaneously. She does not try to look at me, however, she does have a history of glaucoma.) ENT Exam: airway nml Neck Exam: normal inspection, No tenderness Respiratory/Chest Exam: normal breath sounds, No chest tenderness, No respiratory distress Cardiovascular Exam: normal heart sounds, regular rate/rhythm Gastrointestinal Exam: soft, No tenderness, No distention, No guarding, No ecchymosis Rectal Exam: not done, black stool (obtained during rectal temp) Back Exam: normal inspection, No vertebral tenderness Extremity Exam: normal inspection ( in), normal range of motion, pelvis stable, No deformities Neurologic Exam: alert (and), dysarthria, other (Neurologic exam: The patient moves both upper and lower chilies without difficulty. The patient does not follow commands. Most of her speech is nearly unintelligible. However, one time I asked her very loudly "can you hear me". The patient could be understood to say yes I hear you.) Skin Exam: normal color, warm, dry, No abrasion, No ecchymosis SpO2 Interpretation: O2 applied SpO2: 92 Oxygen Delivery: Room Air - Course EKG Interpreted by Me: RATE, Sinus Rhythm, NORMAL AXIS, NORMAL INTERVALS, NORMAL QRS, NORMAL ST-T, Other (comp CT 10/01/15.) - Radiology Exams Chest X-ray Interpretation: Interpreted by me, Negative (neg 1V chest; comp 2V chest 01/03/18.) - CT Exams Head CT Interpretation: Negative, Tele-radiologist Report (per Dr Lopez), Other ( stable non acute senile brain.) Cervical Spine CT Interpretation: Negative, Tele-radiologist Report (Per Dr Lopez), Other (no new or acute findings) Ordered Tests: Active Orders 24 hr Category Date Time Status Cath for Specimen-Straight STAT Care 02/22/18 19:34 Active Catheter-Mongo Villagran STAT Care 02/22/18 19:33 Active EKG-ER Only STAT Care 02/22/18 19:36 Active IV Insertion STAT Care 02/22/18 19:01 Active IV Insertion STAT Care 02/22/18 20:14 Active NPO (ED) STAT Care 02/22/18 19:33 Active CERVICAL SPINE WO CONTRAST [CT] Stat Exams 02/22/18 20:07 Taken CHEST 1 VIEW (PORTABLE) Stat Exams 02/22/18 19:35 Taken HEAD WITHOUT CONTRAST [CT] Stat Exams 02/22/18 19:01 Taken CBC W DIFF Stat Lab 02/22/18 18:35 Received CMP Stat Lab 02/22/18 18:35 Completed LIPASE Stat Lab 02/22/18 18:35 Completed Lactic Acid Stat Lab 02/22/18 20:05 Results Occult Blood,Stool Other Stat Lab 02/22/18 19:30 Completed TROPONIN Q3H Lab 02/22/18 18:35 Completed TROPONIN Q3H Lab 02/22/18 22:45 Ordered TROPONIN Q3H Lab 02/23/18 01:45 Ordered TROPONIN Q3H Lab 02/23/18 04:45 Ordered TROPONIN Q3H Lab 02/23/18 07:45 Ordered UA W/RFX UR CULTURE Stat Lab 02/22/18 19:30 Completed Medication Summary Generic Name Dose Route Start Last Admin Trade Name Freq PRN Reason Stop Dose Admin Sodium Chloride 1,000 mls @ 100 mls/hr 02/22/18 20:30 Sodium Chloride 0.9% 1000 Ml IV 03/24/18 20:29 .Q10H ROCKY Discontinued Medications Generic Name Dose Route Start Last Admin Trade Name Freq PRN Reason Stop Dose Admin Lorazepam 1 mg 02/22/18 20:03 Ativan 2 Mg/1 Ml Vial IV 02/22/18 20:04 STAT ONE Lorazepam Confirm 02/22/18 20:07 Ativan 2 Mg/1 Ml Vial Administered 02/22/18 20:08 Dose 2 mg .ROUTE .STK-MED ONE Ondansetron HCl 4 mg 02/22/18 19:33 Zofran 4 Mg/2 Ml Vial IV 02/22/18 19:34 STAT ONE Ondansetron HCl Confirm 02/22/18 20:07 Zofran 4 Mg/2 Ml Vial Administered 02/22/18 20:08 Dose 4 mg .ROUTE .STK-MED ONE Pantoprazole Sodium 40 mg 02/22/18 19:33 Protonix 40 Mg Iv IV 02/22/18 19:34 STAT ONE Pantoprazole Sodium Confirm 02/22/18 20:07 Protonix 40 Mg Iv Administered 02/22/18 20:08 Dose 40 mg IV .STK-MED ONE Lab/Rad Data: Laboratory Result Diagrams 02/22/18 18:35 Laboratory Results 02/22/18 02/22/18 02/22/18 Range/Units 20:05 19:30 19:30 Sodium (137-145) mmol/L Potassium (3.5-5.1) mmol/L Chloride (98-107) mmol/L Carbon Dioxide (22-30) mmol/L Anion Gap (5-15) MEQ/L BUN (7-17) mg/dL Creatinine (0.52-1.04) mg/dL Estimated GFR ML/MIN Glucose (74-106) mg/dL Lactic Acid 3.1 H (0.4-2.0) Calcium (8.4-10.2) mg/dL Total Bilirubin (0.2-1.3) mg/dL AST (14-36) U/L ALT (0-35) U/L Alkaline Phosphatase (38-126) U/L Troponin I (0.000-0.034) ng/mL Serum Total Protein (6.3-8.2) g/dL Albumin (3.5-5.0) g/dL Lipase (23-300) U/L Urine Color YELLOW (YELLOW) Urine Appearance SLIGHTLY CLOUDY (CLEAR) Urine pH 6.0 (5-6) Ur Specific Ulen 1.017 (1.005-1.025) Urine Protein NEGATIVE (Negative) Urine Ketones NEGATIVE (NEGATIVE) Urine Blood NEGATIVE (0-5) Hector/ul Urine Nitrite NEGATIVE (NEGATIVE) Urine Bilirubin NEGATIVE (NEGATIVE) Urine Urobilinogen NEGATIVE (0-1) mg/dL Ur Leukocyte Esterase NEGATIVE (NEGATIVE) Urine WBC (Auto) NONE (0-5) /HPF Urine RBC (Auto) NONE (0-2) /HPF U Hyaline Cast (Auto) 3-5 (0-2) /LPF U Epithel Cells (Auto) RARE (FEW) /HPF Urine Bacteria (Auto) NONE (NEGATIVE) /HPF Urine Mucus (Auto) SLIGHT (NEGATIVE) /HPF Urine Culture Reflexed NO (NO) Urine Glucose NEGATIVE (NEGATIVE) mg/dL Stool Occult Blood POSITIVE A (Negative) 02/22/18 02/22/18 Range/Units 18:35 18:35 Sodium 133 L (137-145) mmol/L Potassium 4.7 (3.5-5.1) mmol/L Chloride 102 (98-107) mmol/L Carbon Dioxide 20 L (22-30) mmol/L Anion Gap 14.7 (5-15) MEQ/L BUN 48 H (7-17) mg/dL Creatinine 0.72 (0.52-1.04) mg/dL Estimated GFR > 60.0 ML/MIN Glucose 163 H (74-106) mg/dL Lactic Acid (0.4-2.0) Calcium 8.4 (8.4-10.2) mg/dL Total Bilirubin 0.20 (0.2-1.3) mg/dL AST 23 (14-36) U/L ALT 13 (0-35) U/L Alkaline Phosphatase 80 (38-126) U/L Troponin I 0.218 H* (0.000-0.034) ng/mL Serum Total Protein 6.4 (6.3-8.2) g/dL Albumin 3.6 (3.5-5.0) g/dL Lipase 131 (23-300) U/L Urine Color (YELLOW) Urine Appearance (CLEAR) Urine pH (5-6) Ur Specific Ulen (1.005-1.025) Urine Protein (Negative) Urine Ketones (NEGATIVE) Urine Blood (0-5) Hector/ul Urine Nitrite (NEGATIVE) Urine Bilirubin (NEGATIVE) Urine Urobilinogen (0-1) mg/dL Ur Leukocyte Esterase (NEGATIVE) Urine WBC (Auto) (0-5) /HPF Urine RBC (Auto) (0-2) /HPF U Hyaline Cast (Auto) (0-2) /LPF U Epithel Cells (Auto) (FEW) /HPF Urine Bacteria (Auto) (NEGATIVE) /HPF Urine Mucus (Auto) (NEGATIVE) /HPF Urine Culture Reflexed (NO) Urine Glucose (NEGATIVE) mg/dL Stool Occult Blood (Negative) - Progress Progress: improved Progress Note: 02/22/18 19:53 At 7:45 PM the patient is now answering questions properly and with easy to understand words that are making sense. She says she wants to go back to the [facility]. She states that she hurts all over. 02/22/18 20:03 Pt is becoming agitated. will give ativan 1 mg IV. 02/22/18 20:13 Hgb is 5.0. BUN is 48. 02/22/18 20:33 Discussed pt and lab results with Dr Mckenzie who [facility] Discussed with : Jonah Counseled pt/family regarding: lab results, diagnosis, rad results - Departure Time of Disposition: 20:33 Departure Disposition: Transfer (Transfer to [facility] per Dr Owusu) Clinical Impression: GI bleed, Anemia, Elevated troponin Condition: Fair Critical Care Time: No Referrals: [facility] [LOCATION] -
[2018-02-22] MEDS ORDERED: Zofran 4 MG/2 ML VIAL IV ONE (19:33)
[2018-02-22] MEDS ORDERED: PROTONIX 40 MG IV IV ONE ×2 (19:33→20:07)
[2018-02-22 19:47] LABS: ALBUMIN 3.6 g/dL (3.5-5.0); ALKALINE PHOSPHATASE 80 U/L (38-126); ANION GAP 14.7 MEQ/L (5-15); BLOOD UREA NITROGEN 48 mg/dL (7-17); CHLORIDE 102 mmol/L (98-107); Calcium 8.4 mg/dL (8.4-10.2); Carbon Dioxide 20 mmol/L (22-30); Creatinine 1 0.72 mg/dL (0.52-1.04); Glucose 163 mg/dL (74-106); LIPASE 131 U/L (23-300); Potassium 4.7 mmol/L (3.5-5.1); SGOT/AST 23 U/L (14-36); SGPT/ALT 13 U/L (0-35); SODIUM 133 mmol/L (137-145); Total Protein 6.4 g/dL (6.3-8.2)
[2018-02-22 19:52] LABS: Appearance SLIGHTLY CLOUDY (CLEAR); Bilirubin NEGATIVE (NEGATIVE); Blood NEGATIVE Ery/ul (0-5); Glucose NEGATIVE (NEGATIVE); Ketones NEGATIVE (NEGATIVE); Leukocyte Esterase NEGATIVE (NEGATIVE); Nitrite NEGATIVE (NEGATIVE); Protein,Urine Dip NEGATIVE (Negative); Specific Gravity 1.017 (1.005-1.025); Urobilinogen NEGATIVE mg/dL (0-1)
[2018-02-22] MEDS ORDERED: Ativan 2 MG/1 ML VIAL IV ONE (20:03)
[2018-02-22 20:04] LABS: BASOPHIL % 0.2 % (0.0-0.4); Basophil (Absolute #) 0.05 (0-0.4); Eosinophil % 0.3 % (0.00-5.0); Eosinophil (Absolute #) 0.08 (0-0.5); Granulocyte Absolute (ANC) 18.76 (1.4-6.9); Granulocytes % 76.7 % (36.0-66.0); Hematocrit 16.3 % (35-47); Lymphocyte (Absolute #) 4.14 (1.0-4.6); Lymphocytes % 16.9 % (24.0-44.0); Mean Cell Volume 79.5 fl (78-100); Mean Corpuscular Hgb Concent. 30.7 g/dl (32-36); Mean Platelet Volume 10.9 fl (6-9.5); Monocyte (Absolute #) 1.44 (0.0-1.3); Monocytes % 5.9 % (0.0-12.0); Platelet Count 447 K/mm3 (150-450); Red Blood Count 2.05 M/mm3 (4.1-5.4); White Blood Count 24.5 K/mm3 (4.0-10.5)
[2018-02-22] MEDS ORDERED: Zofran 4 MG/2 ML VIAL ONE (20:07)
[2018-02-22] MEDS ORDERED: Ativan 2 MG/1 ML VIAL ONE (20:07)
[2018-02-22 20:09] LABS: Lactic Acid 3.1 (0.4-2.0)
[2018-02-22] MEDS ORDERED: Sodium Chloride 0.9% 1000 ML 1,000 ML IV SCH (20:30)
[2018-02-22 20:37] LABS: Mean Corpuscular Hemoglobin 24.3 pg (26-32)
[2018-02-22] MEDS ORDERED: Sodium Chloride 0.9% 1000 ML 1,000 ML ONE (20:42)
[2018-02-22 21:38] VITALS: BP 130/58; PULSE 92; O2SAT 95
[2018-02-22 23:19] LABS: ABO TYPING B; RH TYPING POSITIVE
[2018-02-22 23:24] LABS: Antibody Screen NEGATIVE (NEGATIVE)
[2018-02-23 04:41] LABS: BAND 2 % (0.0-2.0); Basophil 2 % (0.0-1.0); Lymphocytes 27 % (24-44); Monocyte 3 % (0.0-12.0); Neutrophils 66 % (36.0-66.0); Total Cells Counted 100
[2018-02-23 04:47] LABS: Hypochromia 1+
[2018-02-23 04:48] LABS: ANISOCYTOSIS 1+; Burr Cells RARE; Targert Cells RARE
[2018-02-23 04:49] LABS: Platelet Estimate NORMAL (NORMAL)
--- NOTE | 2018-02-23 09:08 | XRAY ---
Indication: Confusion/disorientation. Status post fall. Multiple contiguous axial images obtained through the head without contrast. Comparison: August 28, 2016. Images through base of the head degraded by motion. Stable age-appropriate global atrophy and mild/moderate periventricular degenerative micro-ischemia bilaterally. No acute intracranial hemorrhage, abnormal extra-axial fluid collection, or mass effect. Fourth ventricle is midline without hydrocephalus. Bony calvarium intact. Visualized paranasal sinuses and mastoid air cells are clear. Impression: Stable nonacute senile brain. CTDI 48.76
--- NOTE | 2018-02-23 09:12 | XRAY ---
Indication: Confusion/disorientation. Status post fall. Comparison: January 03, 2018. Portable chest remains clear. Heart is not enlarged for AP portable technique. Bony thorax intact again with mild osteopenia, degenerative changes, and scoliosis. Impression: Stable nonacute chest with chronic features.
--- NOTE | 2018-02-23 09:12 | XRAY ---
Indication: Confusion/disorientation. Status post fall. Multiple contiguous axial images obtained through the cervical spine. Sagittal and coronal reformatted images obtained. Comparison: August 28, 2016. Axial images again negative for acute fracture or spinal canal stenosis. Stable osteopenia, multilevel degenerative endplate spurring greatest at C5-C6, multilevel bilateral degenerative facet hypertrophy, and tiny T3 sclerotic lesion. Sagittal and coronal reformatted images demonstrates stable lordotic straightening and multilevel degenerative disc space narrowing again greatest C5-C6. No acute compression fracture, subluxation, or jumped facet. Normal-appearing craniocervical junction. Visualized noncontrasted soft tissues again demonstrates mild scattered carotid calcifications bilaterally. Impression: 1. Again negative for acute fracture/subluxation. 2. Stable cervical lordotic straightening, multilevel degenerative disc disease, and T3 sclerotic lesion. CTDI 20.38
== END 2018-02-22 21:38 | disposition short-term general hospital (02) ==
LOC: ED 18:52
DX: K92.2 Gastrointestinal hemorrhage, unspecified (principal); D64.9 Anemia, unspecified; R51 Headache; R77.8 Other specified abnormalities of plasma proteins; R41.82 Altered mental status, unspecified; R47.81 Slurred speech; Z79.899 Other long term (current) drug therapy; W19.XXXA Unspecified fall, initial encounter; Y93.9 Activity, unspecified; Y92.121 Bathroom in nursing home as the place of occurrence of the external cause; I10 Essential (primary) hypertension
CPT/HCPCS: 36000; 36415; 51702; 70450; 71045; 72125; 80053; 81001; 82272; 83605; 83690; 84484; 85025; 86850; 86900; 86901; 93005; 96374; 96375; 99285; P9612; J2060; J2405

== ENCOUNTER → 2018-05-12 | Emergency (ER) | payer MEDICARE ==
[~2018-05-12] MED LIST: ENOXAPARIN SODIUM SQ ONE; Lasix 40 MG/4 ML IV SCH; Lasix 40 MG/4 ML ONE
--- NOTE | 2018-05-12 18:59 | ERPHSYRPT ---
- History of Present Illness Source: patient, EMS Exam Limitations: clinical condition Timing/Duration: today Activities at Onset: none Severity of Dyspnea-Max: moderate Severity of Dyspnea-Current: moderate Possible Cause: occasional episodes Modifying Factors: Improves With: activity, albuterol nebulizer, oxygen Associated Symptoms: No cough, No chest pain/discomfort, No fever, No dizziness Hx Tetanus, Diphtheria Vaccination/Date Given: Yes Hx Influenza Vaccination/Date Given: Yes Hx Pneumococcal Vaccination/Date Given: No <GEORGETTE SETH - Last Filed: 05/12/18 19:06> <SARINA TIM - Last Filed: 05/12/18 23:11> - History of Present Illness Time Seen by Provider: 05/12/18 18:53 Physician History: 87 y/o white female with known recent h/o gi bleed and copd presents with soa that worsened today at [facility]. denies cp and denies abd pain. oxygen on room air 80's. pt given solumedrol iv and duoneb enroute to ED by ems. (GEORGETTE SETH) Allergies/Adverse Reactions: codeine [Codeine] Allergy (Mild, Verified 05/12/18 18:55) Penicillins Allergy (Mild, Verified 05/12/18 18:55) Sulfa (Sulfonamide Antibiotics) [Sulfa(Sulfonamide Antibiotics)] Allergy ( Verified 05/12/18 18:55) Home Medications: Amlodipine Bes/Olmesartan Med [Annamarie 5-20 mg Tablet] 1 each PO DAILY 02/03/13 [ History] Levothyroxine Sodium 50 Mcg [Synthroid 50 Mcg] 50 mcg PO DAILY 02/03/13 [ History] Lorazepam 1 mg [Ativan 1 MG] 2 mg PO HS 02/03/13 [History] Multivitamins,Therapeutic Tab* [Theragran Multivitamin] 1 tab PO DAILY [History] Cyclobenzaprine HCl [Flexeril] 5 mg PO DAILY 10/01/15 [History] Gabapentin [Neurontin] 100 mg PO HS 10/01/15 [History] Lisinopril 10 mg [Zestril 10 MG] 10 mg PO DAILY 10/01/15 [History] - Review of Systems Constitutional: No Symptoms Eyes: No Symptoms Ears, Nose, & Throat: No Symptoms Respiratory: Dyspnea, No Stridor, No Wheezing Cardiac: No Chest Pain, No Palpitations, No Syncope Abdominal/Gastrointestinal: No Symptoms, No Abdominal Pain, No Nausea, No Vomiting, No Diarrhea Genitourinary Symptoms: No Symptoms Musculoskeletal: No Symptoms Skin: No Symptoms Neurological: No Symptoms Psychological: No Symptoms Endocrine: No Symptoms Hematologic/Lymphatic: No Symptoms Immunological/Allergic: No Symptoms All Other Systems: Reviewed and Negative <GEORGETTE SETH - Last Filed: 05/12/18 19:06> - Past Medical History Pertinent Past Medical History: Yes Neurological History: No Pertinent History ENT History: Cataracts, Glaucoma, Macular Degeneration Cardiac History: Hypertension Respiratory History: No Pertinent History Endocrine Medical History: Diabetes Type II Musculoskeletal History: Arthritis, Other GI Medical History: Diverticulitis History: Other Psycho-Social History: Depression Female Reproductive Disorders: No Pertinent History Other Medical History: hx of dilitation - Past Surgical History Past Surgical History: Yes Neuro Surgical History: No Pertinent History Cardiac: No Pertinent History Respiratory: No Pertinent History Gastrointestinal: Cholecystectomy Genitourinary: No Pertinent History, Other Musculoskeletal: Joint Replacement, Orthopedic Surgery Female Surgical History: Hysterectomy, Other Other Surgical History: both knees replaced,rotator cuff, rectal narinder bladder lift,cataract removed - Social History Smoking Status: Never smoker Exposure to second hand smoke: No Drug Use: none Patient Lives Alone: No <GEORGETTE SETH - Last Filed: 05/12/18 19:06> - Physical Exam General Appearance: moderate distress, alert, anxiety Eye Exam: PERRL/EOMI, eyes nml inspection Ears, Nose, Throat Exam: hearing grossly normal Neck Exam: normal inspection, non-tender, supple, full range of motion Respiratory Exam: respiratory distress (mild), airway intact, crackles/rales, wheezing, No chest tenderness Cardiovascular/Chest Exam: murmur, tachycardia Abdominal/Gastrointestinal Exam: soft, normal bowel sounds, No tenderness, No guarding, No rebound Rectal Exam: not done Extremity Exam: non-tender, normal range of motion, normal inspection Neurologic Exam: alert, oriented x 3, cooperative, complaint adjuster II-XII nml as tested Skin Exam: normal color, warm, dry Lymphatic Exam: No adenopathy SpO2 Interpretation: borderline oxygenation O2 Delivery: Nasal Cannula <GEORGETTE SETH - Last Filed: 05/12/18 19:06> - Nursing Vital Signs Nursing Vital Signs: Initial Vital Signs Pulse Rate 113 H 05/12/18 18:59 Respiratory Rate 18 05/12/18 18:59 Blood Pressure 143/106 05/12/18 18:59 O2 Sat by Pulse Oximetry 99 05/12/18 18:59 - Course Nursing assessment & vital signs reviewed: Yes EKG Interpreted by Me: RATE ([id number]), Sinus Tach, NORMAL AXIS, Non-specific ST Changes, Other (new tachycardia when compared to ekg dated 02/1318) <GEORGETTE SETH - Last Filed: 05/12/18 19:06> Ordered Tests: Active Orders 24 hr Category Date Time Status Clinique Counter Manager STAT Care 05/12/18 18:50 Active EKG-ER Only STAT Care 05/12/18 18:50 Active Berumen [Catheter-[place] Berumen] STAT Care 05/12/18 20:03 Active IV Insertion STAT Care 05/12/18 18:50 Active Pulse Oximetry (ED) STAT Care 05/12/18 18:50 Active CHEST 1 VIEW (PORTABLE) Stat Exams 05/12/18 18:51 Completed CHEST WITH CONTRAST [CT] Stat Exams 05/12/18 19:53 Taken ABG [ARTERIAL BLOOD GASES] Stat Lab 05/12/18 19:22 Completed CBC W DIFF Stat Lab 05/12/18 19:15 Completed CMP Stat Lab 05/12/18 19:15 Completed D-DIMER QUANTITATION Stat Lab 05/12/18 19:15 Completed NT PRO BNP Stat Lab 05/12/18 19:15 Completed TROPONIN Q3H Lab 05/12/18 19:15 Completed TROPONIN Q3H Lab 05/12/18 22:13 Received TROPONIN Q3H Lab 05/13/18 01:00 Ordered TROPONIN Q3H Lab 05/13/18 04:00 Ordered TROPONIN Q3H Lab 05/13/18 07:00 Ordered BiPap/CPAP STAT RT 05/12/18 19:39 Active Medication Summary Generic Name Dose Route Start Last Admin Trade Name Freq PRN Reason Stop Dose Admin Furosemide 40 mg 05/13/18 10:00 05/12/18 20:35 Lasix 40 Mg/4 Ml IV 06/12/18 09:59 40 mg DAILY ROCKY Administration Discontinued Medications Generic Name Dose Route Start Last Admin Trade Name Crescencio PRN Reason Stop Dose Admin Furosemide Confirm 05/12/18 20:34 Lasix 40 Mg/4 Ml Administered 05/12/18 20:35 Dose 40 mg .ROUTE .STK-MED ONE Lab/Rad Data: Laboratory Result Diagrams 05/12/18 19:15 05/12/18 19:15 Laboratory Results 05/12/18 05/12/18 05/12/18 Range/Units 19:22 19:15 19:15 WBC (4.0-10.5) K/mm3 RBC (4.1-5.4) M/mm3 Hgb (12.0-16.0) gm/dl Hct (35-47) % MCV (78-100) fl MCH (26-32) pg MCHC (32-36) g/dl RDW (11.5-14.0) % Plt Count (150-450) K/mm3 MPV (6-9.5) fl Gran % (36.0-66.0) % Eos # (Auto) (0-0.5) Absolute Lymphs (auto) (1.0-4.6) Absolute Monos (auto) (0.0-1.3) Lymphocytes % (24.0-44.0) % Monocytes % (0.0-12.0) % Eosinophils % (0.00-5.0) % Basophils % (0.0-0.4) % Absolute Granulocytes (1.4-6.9) Basophils # (0-0.4) D-Dimer 1323 H* (215-500) ng/mL Puncture Site RIGHT RADIAL pCO2 60 H* (35-45) mmHg pO2 373 H* (75-100) mmHg Base Excess -2.7 L (-2.0-2.0) O2 Saturation 97.3 (94-100) g/dF ABG pH 7.23 L* (7.35-7.45) ABG HCO3 25.1 (22-28) ABG O2 Sat (Measured) 100.4 H (95-100) % Jatin Test YES A-a Gradient 265 a/A Ratio 0.58 Hemoglobin 8.4 Carboxyhemoglobin 2.2 (0.0-6.9) % THgb Methemoglobin 1.0 L (1.4-1.5) % Temperature 37.0 C POC O2 Flow Rate 100 % Vent Mode BiPAP Sodium (137-145) mmol/L Potassium 3.2 L (3.5-5.1) mmol/L Chloride (98-107) mmol/L Carbon Dioxide (22-30) mmol/L Anion Gap (5-15) MEQ/L BUN (7-17) mg/dL Creatinine (0.52-1.04) mg/dL Estimated GFR ML/MIN Glucose (74-106) mg/dL Calcium (8.4-10.2) mg/dL Total Bilirubin (0.2-1.3) mg/dL AST (14-36) U/L ALT (0-35) U/L Alkaline Phosphatase (38-126) U/L Troponin I 0.058 H* (0.000-0.034) ng/mL NT-Pro-B Natriuret Pep (0-1800) pg/mL Serum Total Protein (6.3-8.2) g/dL Albumin (3.5-5.0) g/dL 05/12/18 05/12/18 Range/Units 19:15 19:15 WBC 15.4 H (4.0-10.5) K/mm3 RBC 4.00 L (4.1-5.4) M/mm3 Hgb 8.3 L (12.0-16.0) gm/dl Hct 27.4 L (35-47) % MCV 68.5 L (78-100) fl MCH 20.7 L (26-32) pg MCHC 30.3 L (32-36) g/dl RDW 17.9 H (11.5-14.0) % Plt Count 383 (150-450) K/mm3 MPV 10.8 H (6-9.5) fl Gran % 84.4 H (36.0-66.0) % Eos # (Auto) 0.04 (0-0.5) Absolute Lymphs (auto) 1.56 (1.0-4.6) Absolute Monos (auto) 0.70 (0.0-1.3) Lymphocytes % 10.1 L (24.0-44.0) % Monocytes % 4.6 (0.0-12.0) % Eosinophils % 0.3 (0.00-5.0) % Basophils % 0.6 (0.0-0.4) % Absolute Granulocytes 12.99 H (1.4-6.9) Basophils # 0.09 (0-0.4) D-Dimer (215-500) ng/mL Puncture Site pCO2 (35-45) mmHg pO2 (75-100) mmHg Base Excess (-2.0-2.0) O2 Saturation (94-100) g/dF ABG pH (7.35-7.45) ABG HCO3 (22-28) ABG O2 Sat (Measured) (95-100) % Jatin Test A-a Gradient a/A Ratio Hemoglobin Carboxyhemoglobin (0.0-6.9) % THgb Methemoglobin (1.4-1.5) % Temperature C POC O2 Flow Rate % Vent Mode Sodium 139 (137-145) mmol/L Potassium 3.7 (3.5-5.1) mmol/L Chloride 102 (98-107) mmol/L Carbon Dioxide 25 (22-30) mmol/L Anion Gap 15.4 H (5-15) MEQ/L BUN 20 H (7-17) mg/dL Creatinine 0.97 (0.52-1.04) mg/dL Estimated GFR 57.7 ML/MIN Glucose 274 H (74-106) mg/dL Calcium 8.7 (8.4-10.2) mg/dL Total Bilirubin 0.40 (0.2-1.3) mg/dL AST 16 (14-36) U/L ALT 12 (0-35) U/L Alkaline Phosphatase 131 H (38-126) U/L Troponin I (0.000-0.034) ng/mL NT-Pro-B Natriuret Pep 31713 H (0-1800) pg/mL Serum Total Protein 7.6 (6.3-8.2) g/dL Albumin 4.2 (3.5-5.0) g/dL <GEORGETTE SETH - Last Filed: 05/12/18 19:06> - Progress Blood Culture(s) Obtained: No Antibiotics given: No Will see patient in: other (Transfer to regional ER) <SARINA TIM - Last Filed: 05/12/18 23:11> - Progress Progress Note: 05/12/18 19:[address] tim at shift change. she accepts pt in transfer. ( GEORGETTE SETH) Pt was evaluated in the ER and was found to be in acute decompensated CHF. Lasix IV 40mg was given. Pt had berumen placed. On ABG PH was slightly low, secondary to elevated CO2. Bipap was placed. Pt had elevated D Dimer and CT for PE study was done, that showed no PE but b/l pleural effusions, and cardiomegaly. Slight elevation of Troponin I, secondary to type II spill ( demand). After a conversation with pt's son, as pt is full code, she will be transfered to [facility] ER. Dr flores is accepting. 05/12/18 23:07 (SARINA TIM) <GEORGETTE SETH - Last Filed: 05/12/18 19:06> - Departure Time of Disposition: 23:10 Departure Disposition: Transfer Critical Care Time: Yes Critical Care Time(excluding separately billable procedures): 30-74 minutes <SARINA TIM - Last Filed: 05/12/18 23:11> - Departure Clinical Impression: Acute decompensated heart failure Condition: Stable Referrals: MOLLY CROSS [Primary Care Provider] - Instructions: Heart Failure Additional Instructions: Pt to be transfered to Regional ER, Dr christiansen is accepting.
[2018-05-12 19:26] LABS: A-aADO2 265; ABG HEMOGLOBIN 8.4; ABG POTASSIUM 3.2 (3.5-5.1); ARTERIAL BLD GAS O2 SATURATION 100.4 % (95-100); ARTERIAL BLOOD GAS BASE EXCESS -2.7 (-2.0-2.0); ARTERIAL BLOOD GAS FIO2 100 %; ARTERIAL BLOOD GAS PO2 373 mmHg (75-100); ARTERIAL BLOOD GAS VENT MODE BiPAP; CARBOXYHEMOGLOBIN 2.2 % THgb (0.0-6.9); HCO3- 25.1 (22-28); HGB O2 SAT 97.3 g/dF (94-100); paO2 pAO1 0.58
[2018-05-12 19:26] LABS: BASOPHIL % 0.6 % (0.0-0.4); Basophil (Absolute #) 0.09 (0-0.4); Eosinophil % 0.3 % (0.00-5.0); Eosinophil (Absolute #) 0.04 (0-0.5); Granulocyte Absolute (ANC) 12.99 (1.4-6.9); Granulocytes % 84.4 % (36.0-66.0); Hematocrit 27.4 % (35-47); Hemoglobin 8.3 gm/dl (12.0-16.0); Lymphocyte (Absolute #) 1.56 (1.0-4.6); Lymphocytes % 10.1 % (24.0-44.0); Mean Cell Volume 68.5 fl (78-100); Mean Corpuscular Hgb Concent. 30.3 g/dl (32-36); Mean Platelet Volume 10.8 fl (6-9.5); Monocytes % 4.6 % (0.0-12.0); Platelet Count 383 K/mm3 (150-450); Red Cell Distribution Width 17.9 % (11.5-14.0); White Blood Count 15.4 K/mm3 (4.0-10.5)
[2018-05-12 19:27] LABS: ARTERIAL BLOOD GAS pH 7.23 (7.35-7.45)
[2018-05-12 19:28] LABS: ABG SITE RIGHT RADIAL; ALLEN TEST OK? YES; ARTERIAL BLOOD GAS PCO2 60 mmHg (35-45)
[2018-05-12 19:29] LABS: Mean Corpuscular Hemoglobin 20.7 pg (26-32)
[2018-05-12 19:45] LABS: ALBUMIN 4.2 g/dL (3.5-5.0); ANION GAP 15.4 MEQ/L (5-15); BILIRUBIN,TOTAL 0.4 mg/dL (0.2-1.3); Calcium 8.7 mg/dL (8.4-10.2); Creatinine 1 0.97 mg/dL (0.52-1.04); Potassium 3.7 mmol/L (3.5-5.1); Total Protein 7.6 g/dL (6.3-8.2)
--- NOTE | 2018-05-12 19:55 | XRAY ---
Indication: Short of breath. Comparison: February 22, 2018. Portable chest demonstrates new enlarging heart with small bibasilar infiltrates/atelectasis/effusions concerning for cardiac decompensation. Superimposed pneumonia not completely excluded.
[2018-05-12 23:43] VITALS: BP 104/68; PULSE 84; O2SAT 100
[2018-05-13 01:14] LABS: Slide Review 1 YES
--- NOTE | 2018-05-13 07:36 | XRAY ---
Indication: Respiratory distress. COPD. Elevated d-dimer. Multiple contiguous axial images obtained through the chest using 80 cc Isovue 370 contrast and PE protocol. Comparison: February 03, 2013. There is satisfactory opacification of the pulmonary arteries to include the lobar and segmental branches. No filling defect or pulmonary embolus. Heart is borderline enlarged. Aorta minimally arteriosclerotic without aneurysm/dissection. Stable right infrahilar calcified node. No pathologic mediastinal/hilar lymphadenopathy. Examination of the lung parenchyma demonstrates moderate bilateral pleural effusions with bilateral compressive atelectasis. Minimal right middle lobe and lingular fibrosis/scarring. No suspicious pulmonary mass. Bony thorax intact with minimal degenerative changes throughout the spine. Limited upper abdomen including adrenal glands unremarkable. Impression: 1. Again negative pulmonary embolus. 2. New borderline cardiomegaly and moderate bilateral pleural effusions. Comment: Preliminary interpretation was made by [facility]. No discrepancy. CTDI 21.38
== END ==
LOC: ED 18:47
DX: I50.9 Heart failure, unspecified (principal); J44.9 Chronic obstructive pulmonary disease, unspecified; Z79.899 Other long term (current) drug therapy; E11.9 Type 2 diabetes mellitus without complications; M19.90 Unspecified osteoarthritis, unspecified site; I10 Essential (primary) hypertension; F32.9 Major depressive disorder, single episode, unspecified; R79.89 Other specified abnormal findings of blood chemistry
CPT/HCPCS: 36000; 36415; 36600; 51702; 71045; 71260; 80053; 82375; 82803; 83880; 84484; 85025; 85379; 93005; 93041; 94002; 96372; 96374; 99285; 99291; J1650; J1940

== ENCOUNTER 2019-05-22 17:05 | Emergency (ER) | payer MEDICARE ==
[2019-05-22] MEDS ORDERED: GlucaGen 1 MG IM ONE (17:06)
[2019-05-22] MEDS ORDERED: D50W 50 ml Abboject IV ONE ×2 (17:08→18:49)
[2019-05-22 18:02] LABS: Hematocrit 35.8 % (35-47); Hemoglobin 11.6 gm/dl (12.0-16.0); Mean Cell Volume 81.7 fl (78-100); Mean Corpuscular Hemoglobin 26.5 pg (26-32); Mean Corpuscular Hgb Concent. 32.4 g/dl (32-36); Mean Platelet Volume 12.5 fl (7.5-11.0); Platelet Count 278 K/mm3 (150-450); Red Blood Count 4.38 M/mm3 (4.1-5.4); Red Cell Distribution Width 15.8 % (11.5-14.0); White Blood Count 9.2 K/mm3 (4.0-10.5)
[2019-05-22 18:19] LABS: ALBUMIN 3.6 g/dL (3.5-5.0); ANION GAP 18.5 MEQ/L (5-15); BILIRUBIN,TOTAL 0.5 mg/dL (0.2-1.3); Calcium 9.6 mg/dL (8.4-10.2); Creatinine 1 2.89 mg/dL (0.52-1.04); Potassium 3.6 mmol/L (3.5-5.1); Total Protein 6.7 g/dL (6.3-8.2)
[2019-05-22 18:35] LABS: INFLUENZA A NEGATIVE (NEGATIVE); INFLUENZA B NEGATIVE (NEGATIVE); RESPIRATORY SYNCTIAL VIRUS NEGATIVE (Negative)
[2019-05-22 19:23] LABS: Eosinophil 1 % (0.00-3.0); Lymphocytes 14 % (24-44); Monocyte 2 % (0.0-12.0); Neutrophils 83 % (36.0-66.0); Platelet Estimate NORMAL (NORMAL); Total Cells Counted 100
--- NOTE | 2019-05-22 20:03 | ERPHSYRPT ---
- History of Present Illness Time Seen by Provider: 05/22/19 18:20 Source: patient Exam Limitations: no limitations Patient Subjective Stated Complaint: EMS brought patient in from [facility] because sats were "in the 70s" and brought to [facility]. Triage Nursing Assessment: Upon arrival with EMS, pt is mostly unresponsive, moaning and mumbling. Patient pale, hands and feet are bluish-purple. Accucheck 17 taken the first time and 18 upon second check. Patient unable to verbalize pain. Physician History: Patient is a 88-year-old female [facility] for evaluation of altered mental status. Patient was found to be hypoglycemic and hypoxic upon arrival. Patient unable to provide meaningful information to this HPI. Patient does not have a history of diabetes. Timing/Duration: today Severity: moderate Modifying Factors: Improves With: other Associated Symptoms: other Allergies/Adverse Reactions: codeine [Codeine] Allergy (Mild, Verified 05/12/18 18:55) Penicillins Allergy (Mild, Verified 05/12/18 18:55) Sulfa (Sulfonamide Antibiotics) [Sulfa(Sulfonamide Antibiotics)] Allergy ( Verified 05/12/18 18:55) Home Medications: Amlodipine Bes/Olmesartan Med [Annamarie 5-20 mg Tablet] 1 each PO DAILY 02/03/13 [ History] Levothyroxine Sodium 50 Mcg [Synthroid 50 Mcg] 50 mcg PO DAILY 02/03/13 [ History] Lorazepam 1 mg [Ativan 1 MG] 2 mg PO HS 02/03/13 [History] Multivitamins,Therapeutic Tab* [Theragran Multivitamin] 1 tab PO DAILY [History] Cyclobenzaprine HCl [Flexeril] 5 mg PO DAILY 10/01/15 [History] Gabapentin [Neurontin] 100 mg PO HS 10/01/15 [History] Lisinopril 10 mg [Zestril 10 MG] 10 mg PO DAILY 10/01/15 [History] Hx Tetanus, Diphtheria Vaccination/Date Given: No (unknown) Hx Influenza Vaccination/Date Given: Yes Hx Pneumococcal Vaccination/Date Given: Yes Immunizations Up to Date: Yes - Review of Systems Constitutional: No Fever, No Chills Eyes: No Symptoms Ears, Nose, & Throat: No Symptoms Respiratory: No Symptoms, No Cough, No Dyspnea Cardiac: No Symptoms, No Chest Pain, No Edema, No Syncope Abdominal/Gastrointestinal: No Symptoms, No Abdominal Pain, No Nausea, No Vomiting, No Diarrhea Genitourinary Symptoms: No Symptoms, No Dysuria Musculoskeletal: No Symptoms, No Back Pain, No Neck Pain Skin: No Rash Neurological: No Dizziness, No Focal Weakness, No Sensory Changes Psychological: No Symptoms Endocrine: No Symptoms All Other Systems: Reviewed and Negative - Past Medical History Pertinent Past Medical History: Yes Neurological History: No Pertinent History, Dementia ENT History: No Pertinent History, Cataracts, Glaucoma, Macular Degeneration Cardiac History: No Pertinent History, Hypertension Respiratory History: No Pertinent History Endocrine Medical History: No Pertinent History Musculoskeletal History: Arthritis, Osteoporosis, Other GI Medical History: Diverticulitis History: Other Psycho-Social History: Anxiety, Depression Female Reproductive Disorders: No Pertinent History Other Medical History: hx of dilitation, falled bladder, UTI - Past Surgical History Past Surgical History: Yes Neuro Surgical History: No Pertinent History Cardiac: No Pertinent History Respiratory: No Pertinent History Gastrointestinal: Cholecystectomy Genitourinary: No Pertinent History, Other Musculoskeletal: Joint Replacement, Orthopedic Surgery Female Surgical History: Hysterectomy, Other Other Surgical History: both knees replaced,rotator cuff, rectal narinder bladder lift,cataract removed - Social History Smoking Status: Never smoker Exposure to second hand smoke: No Drug Use: none Patient Lives Alone: No ([facility]) - Nursing Vital Signs Nursing Vital Signs: Initial Vital Signs Temperature 98.8 F 05/22/19 18:06 Pulse Rate 88 05/22/19 18:06 Respiratory Rate 18 05/22/19 18:06 Blood Pressure 138/86 05/22/19 18:06 O2 Sat by Pulse Oximetry 97 05/22/19 18:06 Pain Scale Pain Intensity 0 - Physical Exam General Appearance: no apparent distress, alert Eye Exam: PERRL/EOMI, eyes nml inspection Ears, Nose, Throat Exam: normal ENT inspection, TMs normal, pharynx normal, moist mucous membranes Neck Exam: normal inspection, non-tender, supple, full range of motion Respiratory Exam: normal breath sounds, lungs clear, No respiratory distress Cardiovascular Exam: regular rate/rhythm, normal heart sounds, normal peripheral pulses Gastrointestinal/Abdomen Exam: soft, normal bowel sounds, No tenderness, No mass Pelvic Exam: not done Back Exam: normal inspection, normal range of motion, No CVA tenderness, No vertebral tenderness Extremity Exam: normal inspection, normal range of motion, pelvis stable Neurologic Exam: alert, oriented x 3, cooperative, normal mood/affect, nml cerebellar function, nml station & gait, sensation nml, No motor deficits Skin Exam: normal color, warm, dry, No rash Lymphatic Exam: No adenopathy SpO2 Interpretation: normal SpO2: 98 O2 Delivery: Room Air - Course Nursing assessment & vital signs reviewed: Yes EKG Interpreted by Me: RATE, NORMAL AXIS, NORMAL INTERVALS (ST abnormality V4 and V5, Lateral leads) - Radiology Exams Chest X-ray Interpretation: Interpreted by me (Left pleural effusion. No infiltrate or pneumonia.) - CT Exams Abdomen/Pelvis CT Interpretation: Tele-radiologist Report (Distended urinary bladder. Sigmoid diverticulosis. No diverticulitis.) Head CT Interpretation: Tele-radiologist Report (Chronic ischemic changes no acute intracranial pathology.) Ordered Tests: Active Orders 24 hr Category Date Time Status Linseed Oil Temperer STAT Care 05/22/19 17:19 Active EKG-ER Only STAT Care 05/22/19 20:06 Active IV Insertion STAT Care 05/22/19 17:18 Active Pulse Oximetry (ED) STAT Care 05/22/19 17:18 Active ABDOMEN AND PELVIS W/0 CONTRAS [CT] Stat Exams 05/22/19 20:47 Taken CHEST 1 VIEW (PORTABLE) Stat Exams 05/22/19 17:19 Taken HEAD WITHOUT CONTRAST [CT] Stat Exams 05/22/19 23:32 Taken BLOOD CULTURE Stat Lab 05/22/19 17:19 Received CBC W DIFF Stat Lab 05/22/19 17:55 Completed CMP Stat Lab 05/22/19 17:55 Completed Lactic Acid Stat Lab 05/22/19 17:55 Completed Manual Differential NC Stat Lab 05/22/19 17:55 Completed TROPONIN Q3H Lab 05/22/19 17:55 Completed TROPONIN Q3H Lab 05/22/19 23:36 Completed TROPONIN Q3H Lab 05/23/19 02:00 Ordered TROPONIN Q3H Lab 05/23/19 05:00 Ordered TROPONIN Q3H Lab 05/23/19 08:00 Ordered UA W/RFX UR CULTURE Stat Lab 05/22/19 17:19 Uncollected Medication Summary Generic Name Dose Route Start Last Admin Trade Name Freq PRN Reason Stop Dose Admin Dextrose/Sodium Chloride 1,000 mls @ 100 mls/hr 05/22/19 21:15 05/23/19 00:43 Dextrose 5% -0.45 Nacl 1000 Ml IV 06/21/19 21:14 Infused .Q10H ROCKY Infusion Discontinued Medications Generic Name Dose Route Start Last Admin Trade Name Freq PRN Reason Stop Dose Admin Dextrose 50 ml 05/22/19 18:49 05/22/19 17:20 D50w 50 Ml Abboject IV 05/22/19 18:50 50 ml STAT ONE Administration Vancomycin HCl 1 gm in 250 mls @ 167 mls/hr 05/22/19 21:10 05/22/19 21:24 Vancomycin 1gm/ Ns 250ml IV 05/22/19 22:39 167 mls/hr STAT ONE Administration Vancomycin HCl Confirm 05/22/19 21:21 Vancomycin 1gm/ Ns 250ml Administered 05/22/19 21:22 Dose 250 mls @ ud IV .[facility] ONE Levofloxacin/Dextrose 250 mg in 50 mls @ 50 mls/hr 05/22/19 23:36 05/23/19 00 :44 Levaquin 250mg/50ml D5w IV 05/23/19 00:35 Infused STAT STA Infusion Levofloxacin/Dextrose Confirm 05/22/19 23:40 Levaquin 250mg/50ml D5w Administered 05/22/19 23:41 Dose 250 mg in 50 mls @ ud IV .[facility] ONE Lab/Rad Data: Laboratory Result Diagrams 05/22/19 17:55 05/22/19 17:55 Laboratory Results 05/22/19 05/22/19 05/22/19 Range/Units 23:36 17:55 17:55 WBC (4.0-10.5) K/mm3 RBC (4.1-5.4) M/mm3 Hgb (12.0-16.0) gm/dl Hct (35-47) % MCV (78-100) fl MCH (26-32) pg MCHC (32-36) g/dl RDW (11.5-14.0) % Plt Count (150-450) K/mm3 MPV (7.5-11.0) fl Segmented Neutrophils (36.0-66.0) % Lymphocytes (Manual) (24-44) % Monocytes (Manual) (0.0-12.0) % Eosinophils (Manual) (0.00-3.0) % Platelet Estimate (NORMAL) RBC Morphology Sodium (137-145) mmol/L Potassium (3.5-5.1) mmol/L Chloride (98-107) mmol/L Carbon Dioxide (22-30) mmol/L Anion Gap (5-15) MEQ/L BUN (7-17) mg/dL Creatinine (0.52-1.04) mg/dL Estimated GFR ML/MIN Glucose (74-106) mg/dL Lactic Acid (0.4-2.0) Calcium (8.4-10.2) mg/dL Total Bilirubin (0.2-1.3) mg/dL AST (14-36) U/L ALT (0-35) U/L Alkaline Phosphatase (38-126) U/L Troponin I 0.051 H* 0.031 (0.000-0.034) ng/mL Serum Total Protein (6.3-8.2) g/dL Albumin (3.5-5.0) g/dL Influenza Type A Ag NEGATIVE (NEGATIVE) Influenza Type B Ag NEGATIVE (NEGATIVE) RSV (PCR) NEGATIVE (Negative) 05/22/19 05/22/19 05/22/19 Range/Units 17:55 17:55 17:55 WBC 9.2 (4.0-10.5) K/mm3 RBC 4.38 (4.1-5.4) M/mm3 Hgb 11.6 L (12.0-16.0) gm/dl Hct 35.8 (35-47) % MCV 81.7 (78-100) fl MCH 26.5 (26-32) pg MCHC 32.4 (32-36) g/dl RDW 15.8 H (11.5-14.0) % Plt Count 278 (150-450) K/mm3 MPV 12.5 H (7.5-11.0) fl Segmented Neutrophils 83 H (36.0-66.0) % Lymphocytes (Manual) 14 L (24-44) % Monocytes (Manual) 2 (0.0-12.0) % Eosinophils (Manual) 1 (0.00-3.0) % Platelet Estimate NORMAL (NORMAL) RBC Morphology NORMAL Sodium 143 (137-145) mmol/L Potassium 3.6 (3.5-5.1) mmol/L Chloride 107 (98-107) mmol/L Carbon Dioxide 21 L (22-30) mmol/L Anion Gap 18.5 H (5-15) MEQ/L BUN 74 H (7-17) mg/dL Creatinine 2.89 H (0.52-1.04) mg/dL Estimated GFR 16.3 ML/MIN Glucose 585 H* (74-106) mg/dL Lactic Acid 1.7 (0.4-2.0) Calcium 9.6 (8.4-10.2) mg/dL Total Bilirubin 0.50 (0.2-1.3) mg/dL AST 21 (14-36) U/L ALT 18 (0-35) U/L Alkaline Phosphatase 91 (38-126) U/L Troponin I (0.000-0.034) ng/mL Serum Total Protein 6.7 (6.3-8.2) g/dL Albumin 3.6 (3.5-5.0) g/dL Influenza Type A Ag (NEGATIVE) Influenza Type B Ag (NEGATIVE) RSV (PCR) (Negative) - Progress Progress: improved Progress Note: 05/22/19 23:31 Patient reassessed. Patient arrived hypoglycemic. After obtaining access. Patient received dextros. Blood glucose responded. Labs revealed an acute renal injury. It was observed that patient unable to urinate during her time in our ED. Nurses attempted to catheterize patient. Attempts at catheterization were unsuccessful. CT abdomen pelvis completed. CT suggested bladder distended likely from urinary retention. This bladder outlet obstruction is likely the cause of acute renal injury. We are unable to assess for possible urinary tract infection. Patient received vancomycin. Repeat Accu -Chek shows stable glucose. Case discussed with Dr. Farr emergency physician at [facility] accept transfer ED to ED. Plan of care discussed with patient's and son. They agreed to transfer for further evaluation and treatment. 05/22/19 23:33 Counseled pt/family regarding: lab results, diagnosis, rad results - Departure Departure Disposition: Transfer Clinical Impression: Acute renal injury, Hypoglycemia Condition: Stable Critical Care Time: Yes Critical Care Time(excluding separately billable procedures): Critical 75-104 mins Referrals: MOLLY CROSS [Primary Care Provider] -
[2019-05-22] MEDS ORDERED: Vancomycin 1GM/ Ns 250ML*** 1 GM/250 ML IVPB IV ONE (21:10)
[2019-05-22] MEDS ORDERED: Dextrose 5% -0.45 NaCl 1000 ML 1,000 ML IV SCH (21:15)
[2019-05-22] MEDS ORDERED: Vancomycin 1GM/ Ns 250ML*** 250 ML IV ONE (21:21)
[2019-05-22 23:36] VITALS: BP 96/54
[2019-05-22] MEDS ORDERED: Levaquin 250MG/50ML D5W 250 MG/50 ML BAG IV STA (23:36)
[2019-05-22 23:39] VITALS: O2SAT 98
[2019-05-22] MEDS ORDERED: Levaquin 250MG/50ML D5W 250 MG/50 ML BAG IV ONE (23:40)
[2019-05-23 00:09] VITALS: PULSE 88
--- NOTE | 2019-05-23 08:41 | XRAY ---
Indication: Urinary outflow obstruction. Multiple contiguous axial images obtained through the abdomen and pelvis without contrast using renal stone protocol. Comparison: October 22, 2009. Lung bases now demonstrates bilateral scattered atelectasis/scarring and a few right lung calcified granulomas. Heart is now borderline enlarged. New bilateral proximal femur orthopedic fixation hardware produces beam artifact limiting images through the floor of the pelvis. No renal calculus or evidence for obstructive uropathy in either system. Urinary bladder moderately distended. No free fluid/air. Noncontrasted stomach and bowel loops appear nonobstructed. There is now mild scattered colonic fecal debris. Increasing scattered descending and sigmoid diverticulosis. Intraluminal radiopacity throughout the colon either ingested medication/bismuth versus recent barium examination. Again previous cholecystectomy and hysterectomy. There remains a few hepatic/splenic calcified granulomas. No free fluid/air. Remaining liver, pancreas, spleen, adrenal glands, kidneys, ureters, and bladder appear unremarkable for noncontrast exam. Worsening moderate scattered vascular calcifications without AAA. Osseous structures again demonstrates osteopenia and mild scoliosis with progressive worsening mild/moderate multilevel thoracolumbar degenerative spondylosis. New finding old sacrum fractures. Impression: 1. Negative renal calculus or evidence for obstructive uropathy. 2. Moderately distended urinary bladder. Rule out outlet obstruction versus neurogenic bladder. 3. Mild fecal stasis without obstruction and colonic diverticulosis without diverticulitis. 4. Chronic bony findings and evidence for old granulomatous disease.
--- NOTE | 2019-05-23 08:45 | XRAY ---
Indication: Acute mental status change. Multiple contiguous axial images obtained through the head without contrast. Comparison: February 22, 2018. Again age-appropriate global atrophy and moderate periventricular degenerative micro-ischemia bilaterally. 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 No acute intracranial hemorrhage, hydrocephalus, or mass effect. Fourth ventricle is midline without hydrocephalus. Bony calvarium intact. Visualized paranasal sinuses and mastoid air cells are clear. Impression: 1. 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 2. Continued atrophy and degenerative micro-ischemia. 3. No acute intracranial abnormalities. Comment: Preliminary interpretation was made by C. No critical discrepancy.
--- NOTE | 2019-05-23 08:50 | XRAY ---
Indication: Short of breath. Pneumonia. Unresponsive. Comparison: May 12, 2018. Portable chest demonstrates minimal residual bilateral costophrenic angle pleural effusion/thickening. Remaining lungs now clear. Heart is not enlarged. Bony thorax intact again with osteopenia and degenerative changes. No new/acute findings.
== END 2019-05-23 00:35 | disposition short-term general hospital (02) ==
LOC: ED 17:05
DX: N17.9 Acute kidney failure, unspecified (principal); E16.2 Hypoglycemia, unspecified; Z79.899 Other long term (current) drug therapy; I10 Essential (primary) hypertension; F03.90 Unspecified dementia, unspecified severity, without behavioral disturbance, psychotic disturbance, mood disturbance, and anxiety; M81.0 Age-related osteoporosis without current pathological fracture
CPT/HCPCS: 36000; 36415; 70450; 71045; 74176; 80053; 82962; 83605; 84484; 85025; 87040; 87631; 93005; 93041; 94760; 96360; 96374; 99285; 99291; 99292; J1610; J1956; J3370